=== PATIENT | female | born 1985 | race Caucasian/White ===

== ENCOUNTER 2016-04-22 15:16 | Outpatient (CLI) | payer MEDICAID | END 2016-04-22 15:17 | disposition home or self-care (01) | DX: M50.321 Other cervical disc degeneration at C4-C5 level (principal) ==

== ENCOUNTER 2017-08-11 08:00 | Outpatient (CLI) | payer MEDICAID | END 2017-08-11 08:01 | disposition home or self-care (01) | LOC: LAB.N 08:00 | PROVIDERS: ATTEND Nurse Practitioner | DX: Z33.3 Pregnant state, gestational carrier (principal) | CPT/HCPCS: 36415; 84702 ==

== ENCOUNTER 2017-08-13 08:00 | Outpatient (CLI) | payer MEDICAID | END 2017-08-13 08:01 | disposition home or self-care (01) | LOC: LAB.N 08:00 | PROVIDERS: ATTEND Nurse Practitioner | DX: Z33.3 Pregnant state, gestational carrier (principal) | CPT/HCPCS: 36415; 84702 ==

== ENCOUNTER 2018-03-18 12:06 | Emergency (ER) | payer MEDICAID ==
[2018-03-18 12:56] LABS: BILIRUBIN,URINE NEGATIVE (NEGATIVE); GLUCOSE, URINE (UA) NEGATIVE (NEGATIVE); KETONES,URINE (UA) TRACE mg/dL (NEGATIVE); LEUKOCYTE ESTERASE, URINE MODERATE (NEGATIVE); NITRITE,URINE POSITIVE (NEGATIVE); OCCULT BLOOD,URINE SMALL (NEGATIVE); PROTEIN,URINE 30 mg/dL (NEGATIVE); UROBILINOGEN,URINE 0.2 (NORMAL) E.U./dL (NORMAL)
[2018-03-18 12:59] LABS: CLARITY,URINE CLOUDY (CLEAR); HCG UR QUAL NEGATIVE
[2018-03-18 13:09] LABS: BASOPHILS # (AUTO) 0.1 10^3/uL (0.0-0.1); BASOPHILS % (AUTO) 0.5 %; HGB - HEMOGLOBIN 13.6 g/dL (12.0-16.0); LYMPHOCYTES # (AUTO) 0.7 10^3/uL (1.5-3.5); MEAN CORPUSCULAR HEMOGLOBIN 32.9 pg (27.0-31.0); MEAN CORPUSCULAR HGB CONC 35.5 g/dL (32.0-36.0); MEAN CORPUSCULAR VOLUME 92.9 fL (81.0-99.0); MEAN PLATELET VOLUME 8.2 fL (7.9-10.8); MONOCYTES # (AUTO) 1.3 10^3/uL (0.0-1.0); MONOCYTES % (AUTO) 13.1 %; NEUTROPHILS % (AUTO) 79.4 %; PLT - PLATELET COUNT 190 10^3/uL (130-450); RED BLOOD COUNT 4.13 10^6/uL (4.20-5.40); RED CELL DISTRIBUTION WIDTH 12.7 % (12.0-15.0); WHITE BLOOD COUNT 10.1 x10^3/uL (4.8-10.8)
[2018-03-18 13:13] LABS: BACTERIA,URINE Many /HPF (None Seen); RBC,URINE 0-5 /HPF (0-5); SQUAMOUS EPITHELIAL CELL,UR FEW Squamous (<= Few)
[2018-03-18 13:21] LABS: ALBUMIN 4.6 g/dL (3.2-5.5); ALBUMIN/GLOBULIN RATIO 1.3 (1.0-2.2); BILIRUBIN,TOTAL 0.8 mg/dL (0.2-1.0); CREATININE 0.6 mg/dL (0.4-1.0); TOTAL PROTEIN 8.1 g/dL (6.7-8.2)
--- NOTE | 2018-03-18 14:24 | ED Physician Documentation ---
PD HPI ABD PAIN - Stated complaint Stated Complaint: LOW RT SIDE ABD PX - Chief complaint Chief Complaint: Abd Pain - History obtained from History obtained from: Patient - History of Present Illness Timing - onset: Other (3 Days of increasing flank pain radiating to the lower quadrants similar to prior episodes of pyelonephritis which she has about once a year. No fevers but she has had chills and nausea but no vomiting yet.) Review of Systems Ten Systems: 10 systems reviewed and negative Constitutional: reports: Chills. denies: Fever GI: denies: Abdominal Pain, Nausea, Vomiting : denies: Dysuria, Frequency PD PAST MEDICAL HISTORY - Present Medications Home Medications: Ambulatory Orders Medication Instructions Recorded Confirmed Ciprofloxacin HCl [Cipro] 500 mg PO BID #14 tablet 03/18/18 Hydrocodone/Acetaminophen 1 - 2 each PO Q6H PRN #10 tablet 03/18/18 [Hydrocodon-Acetaminophen 5-325] Ondansetron Odt [Zofran] 4 mg TL Q6H PRN #10 tablet 03/18/18 RX: FLUoxetine [PROzac] 03/18/18 RX: hydrOXYzine HCl [Hydroxyzine 03/18/18 03/18/18 HCl] - Allergies Allergies/Adverse Reactions: Allergies Allergy/AdvReac Type Severity Reaction Status Date / Time doxycycline Allergy Rash Verified 03/18/18 12:37 PD ED PE NORMAL - Vitals Vital signs reviewed: Yes - General General: Alert and oriented X 3, No acute distress - Neck Neck: Supple, no meningeal sign, No bony TTP - Cardiac Cardiac: RRR, No murmur - Respiratory Respiratory: No respiratory distress, Clear bilaterally - Abdomen Abdomen: Non tender - Back Back: Other (Mod R CVAT) - Derm Derm: Normal color, Warm and dry - Extremities Extremities: No edema, No calf tenderness / cord - Neuro Neuro: Alert and oriented X 3, Normal speech Results - Vitals Vitals: Vital Signs - 24 hr 03/18/18 03/18/18 12:33 15:30 Temperature 37.4 C 37.2 C Heart Rate 97 94 Respiratory 18 16 Rate Blood Pressure 97/76 95/61 O2 Saturation 99 97 Oxygen O2 Source Room air - Labs Labs: Laboratory Tests 03/18/18 03/18/18 03/18/18 12:44 13:01 13:01 WBC 10.1 RBC 4.13 L Hgb 13.6 Hct 38.4 MCV 92.9 MCH 32.9 H MCHC 35.5 RDW 12.7 Plt Count 190 MPV 8.2 Neut # (Auto) 8.0 H Lymph # (Auto) 0.7 L [place] # (Auto) 1.3 H Eos # (Auto) 0.0 Baso # (Auto) 0.1 Absolute Nucleated RBC 0.01 Nucleated RBC % 0.1 Sodium 135 Potassium 3.5 Chloride 98 L Carbon Dioxide 27 Anion Gap 10.0 BUN 9 Creatinine 0.6 Estimated GFR (MDRD) 117 Glucose 105 H Calcium 9.0 Total Bilirubin 0.8 AST 18 ALT 14 Alkaline Phosphatase 50 Total Protein 8.1 Albumin 4.6 Globulin 3.5 Albumin/Globulin Ratio 1.3 Lipase 23 Urine Color YELLOW Urine Clarity CLOUDY Urine pH 6.0 Ur Specific [place] 1.020 Urine Protein 30 H Urine Glucose (UA) NEGATIVE Urine Ketones TRACE Urine Occult Blood SMALL H Urine Nitrite POSITIVE H Urine Bilirubin NEGATIVE Urine Urobilinogen 0.2 (NORMAL) Ur Leukocyte Esterase MODERATE H Urine RBC 0-5 Urine WBC >25 H Ur Squamous Epith Cells FEW Squamous Urine Bacteria Many H Ur Microscopic Review INDICATED Urine Culture Comments INDICATED Urine HCG, Qual NEGATIVE PD MEDICAL DECISION MAKING - ED course ED course: 32-year-old woman with signs and symptoms of pyelonephritis, Feeling better after the administration of IV fluids and antibiotics as well as pain and nausea medicine here. She was able to tolerate oral liquids. Departure - Departure Disposition: 01 Home, Self Care Clinical Impression: Pyelonephritis Condition: Good Record reviewed to determine appropriate education?: Yes Instructions: Pyelonephritis Dc Prescriptions: Ciprofloxacin HCl [Cipro] 500 mg PO BID #14 tablet Hydrocodone/Acetaminophen [Hydrocodon-Acetaminophen 5-325] 1 - 2 each PO Q6H PRN #10 tablet PRN Reason: pain Ondansetron Odt [Zofran] 4 mg TL Q6H PRN #10 tablet PRN Reason: Nausea / Vomiting Comments: We will culture your urine, the results should be done in 48-72 hours. If an antibiotic change is necessary we will call you. Return if worse in the meantime, especially if you develop increasing flank pain, fevers, or cannot keep down the medication. Call your doctor to arrange a follow-up appointment, make the next available appointment. In the interim, return anytime if worse or if new symptoms d evelop. Forms: Activity restrictions Discharge Date/Time: 03/18/18 15:31
[2018-03-18] MEDS: ONDANSETRON 4 MG/2 ML VIAL IVP STA (14:59)
[2018-03-18] MEDS: cefTRIAXone 1 GM in SODIUM CHLORIDE 0.9% MINIBAG 100 ML IV STA (14:59)
[2018-03-18] MEDS: KETOROLAC 30 MG/ML VIAL IVP STA (14:59)
[2018-03-18] MEDS: SODIUM CHLORIDE 0.9% 1,000 ML IV ONE (14:59)
[2018-03-18 15:31] VITALS: BP 95/61
== END 2018-03-18 15:31 | disposition home or self-care (01) ==
LOC: ED 12:06
DX: N12 Tubulo-interstitial nephritis, not specified as acute or chronic (principal)
CPT/HCPCS: 36415; 80053; 81001; 81003; 81025; 83690; 85025; 87077; 87086; 87181; 96365; 96375; 99283

== ENCOUNTER 2018-12-15 21:54 | Emergency (ER) | payer MEDICAID ==
--- NOTE | 2018-12-15 22:20 | ED Physician Documentation ---
PD HPI FEMALE - Stated complaint Stated Complaint: FEMALE - Chief complaint Chief Complaint: Abd Pain - History obtained from History obtained from: Patient - History of Present Illness Timing - onset: Enter time (19:00), Today Timing - duration: Hours Timing - details: Abrupt onset Pain level max: 7 Pain level max: 4 Associated symptoms: Pelvic pain (cramping), Vaginal bleeding. 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 Unsure if she is Review of Systems Constitutional: denies: Fever, Chills, Sweats Cardiac: reports: Reviewed and negative Respiratory: reports: Reviewed and negative GI: denies: Abdominal Pain (pelvic pain but no abdominal pain per se), Nausea, Vomiting : denies: Dysuria, Frequency Musculoskeletal: denies: Back pain PD PAST MEDICAL HISTORY - Past Medical History Past Medical History: Yes [employer]OR [employer]: Other : Chronic bladder infection - Past Surgical History /[employer]: Oophrectomy - Present Medications Home Medications: Ambulatory Orders Medication Instructions Recorded Confirmed Ciprofloxacin HCl [Cipro] 500 mg PO BID #14 tablet 03/18/18 FLUoxetine [PROzac] 03/18/18 Hydrocodone/Acetaminophen 1 - 2 each PO Q6H PRN #10 tablet 03/18/18 [Hydrocodon-Acetaminophen 5-325] Ondansetron Odt [Zofran] 4 mg TL Q6H PRN #10 tablet 03/18/18 hydrOXYzine HCl [Hydroxyzine HCl] 03/18/18 03/18/18 oxyCODONE [Roxicodone] 5 mg PO Q6H PRN #10 tablet 12/16/18 - Allergies Allergies/Adverse Reactions: Allergies Allergy/AdvReac Type Severity Reaction Status Date / Time doxycycline Allergy Rash Verified 12/15/18 22:00 - Social History Does the pt smoke?: Yes Smoking Status: Current every day smoker Does the pt drink ETOH?: Yes - Immunizations Immunizations are current?: Yes PD ED PE NORMAL - Vitals Vital signs reviewed: Yes - General General: Alert and oriented X 3, No acute distress, Well developed/nourished - Cardiac Cardiac: RRR, No murmur - Respiratory Respiratory: No respiratory distress, Clear bilaterally - Abdomen Abdomen: Soft, Non tender - Back Back: No CVA TTP - Derm Derm: Normal color, Warm and dry PD ED PE EXPANDED - Female Female : Vaginal Bleeding (scant blood in posterior vagina from closed os. no active bleeding, no clots, no tissue), Night Auditor present (KATHLEEN Hanson) Results - Vitals Vitals: Vital Signs - 24 hr 12/15/18 12/16/18 12/16/18 21:55 01:21 02:40 Temperature 36.1 C L Heart Rate 91 76 71 Respiratory 16 16 16 Rate Blood Pressure 138/99 H 120/77 140/84 H O2 Saturation 99 100 100 Oxygen O2 Source Nasal cannula - Labs Labs: Laboratory Tests 12/15/18 12/15/18 12/15/18 22:35 22:35 22:35 WBC 8.8 RBC 3.99 L Hgb 12.8 Hct 37.4 MCV 93.7 MCH 32.1 H MCHC 34.2 RDW 11.9 L Plt Count 199 MPV 10.5 Neut # (Auto) 5.9 Lymph # (Auto) 1.9 [place] # (Auto) 0.9 Eos # (Auto) 0.1 Baso # (Auto) 0.0 Absolute Nucleated RBC 0.00 Nucleated RBC % 0.0 Sodium 136 Potassium 3.4 L Chloride 102 Carbon Dioxide 26 Anion Gap 8.0 BUN 15 Creatinine 0.7 Estimated GFR (MDRD) 97 Glucose 120 H Calcium 9.2 HCG, Quant Urine Color Urine Clarity Urine pH Ur Specific [place] Urine Protein Urine Glucose (UA) Urine Ketones Urine Occult Blood Urine Nitrite Urine Bilirubin Urine Urobilinogen Ur Leukocyte Esterase Urine RBC Urine WBC Ur Squamous Epith Cells Urine Bacteria Ur Microscopic Review Urine Culture Comments Blood Type A POSITIVE Antibody Screen NEGATIVE 12/15/18 12/15/18 22:35 23:40 WBC RBC Hgb Hct MCV MCH MCHC RDW Plt Count MPV Neut # (Auto) Lymph # (Auto) [place] # (Auto) Eos # (Auto) Baso # (Auto) Absolute Nucleated RBC Nucleated RBC % Sodium Potassium Chloride Carbon Dioxide Anion Gap BUN Creatinine Estimated GFR (MDRD) Glucose Calcium HCG, Quant 54667.00 Urine Color YELLOW Urine Clarity BLOODY Urine pH 5.5 Ur Specific [place] 1.025 Urine Protein 30 H Urine Glucose (UA) NEGATIVE Urine Ketones NEGATIVE Urine Occult Blood LARGE H Urine Nitrite NEGATIVE Urine Bilirubin NEGATIVE Urine Urobilinogen 0.2 (NORMAL) Ur Leukocyte Esterase TRACE H Urine RBC TNTC H Urine WBC 0-3 Ur Squamous Epith Cells FEW Squamous Urine Bacteria Rare Ur Microscopic Review INDICATED Urine Culture Comments INDICATED Blood Type Antibody Screen - Rads (name of study) first trimester US Radiology: Prelim report reviewed, See rad report PD MEDICAL DECISION MAKING - ED course Complexity details: reviewed results, re-evaluated patient, considered differential, d/w patient ED course: Results reviewed with patient. At this point, the most likely explanation is completed spontaneous , but I emphasized the need for f/u to ensure she does not retain any products of conception as well as to repeat testing (such as quantitative HCG and US) to r/o ectopic . Case d/w Dr. Marvin, agrees with this plan (outpatient f/u, return if worse or new/concerning signs/symptoms such as fever, uncontrolled pain, or worsening vaginal bleeding). Departure - Departure Disposition: 01 Home, Self Care Clinical Impression: Spontaneous Condition: Good Instructions: ED Miscarriage Completed Follow-Up: Candido Marvin MD [Provider Admit Priv/Credential] - Within 3 Days Prescriptions: oxyCODONE [Roxicodone] 5 mg PO Q6H PRN #10 tablet PRN Reason: Pain Comments: You will need repeat testing within the next 2-3 days; follow up with public weigher. Discharge Date/Time: 12/16/18 02:52
[2018-12-15 22:44] LABS: BASOPHILS % (AUTO) 0.3 %; EOSINOPHILS # (AUTO) 0.1 10^3/uL (0.0-0.7); EOSINOPHILS % (AUTO) 0.8 %; HGB - HEMOGLOBIN 12.8 g/dL (12.0-16.0); LYMPHOCYTES # (AUTO) 1.9 10^3/uL (1.5-3.5); LYMPHOCYTES % (AUTO) 21.1 %; MEAN CORPUSCULAR HEMOGLOBIN 32.1 pg (27.0-31.0); MEAN CORPUSCULAR HGB CONC 34.2 g/dL (32.0-36.0); MEAN CORPUSCULAR VOLUME 93.7 fL (81.0-99.0); MEAN PLATELET VOLUME 10.5 fL (7.9-10.8); MONOCYTES # (AUTO) 0.9 10^3/uL (0.0-1.0); MONOCYTES % (AUTO) 10.6 %; NEUTROPHILS # (AUTO) 5.9 10^3/uL (1.5-6.6); NEUTROPHILS % (AUTO) 66.9 %; PLT - PLATELET COUNT 199 10^3/uL (130-450); RED BLOOD COUNT 3.99 10^6/uL (4.20-5.40); RED CELL DISTRIBUTION WIDTH 11.9 % (12.0-15.0); WHITE BLOOD COUNT 8.8 x10^3/uL (4.8-10.8)
[2018-12-15 22:53] LABS: CALCIUM 9.2 mg/dL (8.5-10.3); CREATININE 0.7 mg/dL (0.4-1.0)
[2018-12-16 00:03] LABS: GLUCOSE, URINE (UA) NEGATIVE (NEGATIVE); KETONES,URINE (UA) NEGATIVE (NEGATIVE); LEUKOCYTE ESTERASE, URINE TRACE (NEGATIVE); NITRITE,URINE NEGATIVE (NEGATIVE); OCCULT BLOOD,URINE LARGE (NEGATIVE); PH,URINE 5.5 PH (5.0-7.5); PROTEIN,URINE 30 mg/dL (NEGATIVE); UROBILINOGEN,URINE 0.2 (NORMAL) E.U./dL (NORMAL)
[2018-12-16 00:10] LABS: BILIRUBIN,URINE NEGATIVE (NEGATIVE); CLARITY,URINE BLOODY (CLEAR); ICTOTEST,URINE NEGATIVE
[2018-12-16 00:11] LABS: BACTERIA,URINE Rare /HPF (None Seen); RBC,URINE TNTC /HPF (0-5); SQUAMOUS EPITHELIAL CELL,UR FEW Squamous (<= Few)
[2018-12-16] MEDS ORDERED: oxyCODONE 5 MG TABLET PO STA (01:16)
--- NOTE | 2018-12-16 01:25 | Ultrasound Report ---
Reason: , vaginal bleeding and cramping Procedure Date: 12/16/2018 Accession Number: [id number] / [id number] Procedure: US - OB First Trimester CPT Code: FULL RESULT: EXAM: FIRST TRIMESTER OBSTETRIC ULTRASOUND (Less than 11 weeks) EXAM DATE: 12/15/2018 11:54 PM. CLINICAL HISTORY: , vaginal bleeding and cramping. LMP: Unknown. Quantitative serum beta-hCG level is 38,764. COMPARISONS: None. TECHNIQUE: Transabdominal and transvaginal ultrasound examination with static image documentation. ASSESSMENT: Gestational Sac: Not seen. Embryo: Not seen. Cardiac activity: Not seen. Yolk sac: Not seen. Amniotic fluid: Not seen. Early placenta: Not seen. Other: Thickened heterogeneous irregular endometrium measuring up to 1.2 cm in thickness. There is some vascularity which may indicate products of conception. MATERNAL STRUCTURES: Uterus: Anteverted. Unremarkable. Cervix: Closed. Right Ovary/Adnexa: The ovary is surgically absent. Left Ovary/Adnexa: The ovary measures 3.5 x 1.3 x 1.9 cm, volume 4.5 cc. Possible corpus luteum measuring 1.4 x 1.3 x 0.9 cm. Free Fluid: Small amount. Other: Large amount of bowel gas.. IMPRESSION: 1. No intrauterine or extrauterine gestation identified. 2. Mildly thickened heterogeneous irregular endometrium measuring up to 1.2 cm with some areas of vascularity possibly representing products of conception. Findings could represent incomplete . 3. Recommend correlation with serial quantitative serum beta-hCG levels and sonographic follow-up to exclude occult ectopic. RAD[facility]
[2018-12-16] MEDS ORDERED: ONDANSETRON 4 MG/2 ML VIAL IVP STA (01:28)
[2018-12-16 02:49] VITALS: BP 140/84
== END 2018-12-16 02:52 | disposition home or self-care (01) ==
LOC: ED 21:54
DX: O03.9 Complete or unspecified spontaneous abortion without complication (principal); F17.200 Nicotine dependence, unspecified, uncomplicated
CPT/HCPCS: 36415; 76801; 76817; 80048; 81001; 84702; 85025; 86850; 86900; 86901; 87086; 96374; 99283; 99284; A9270; 81003

== ENCOUNTER 2018-12-20 10:59 | Outpatient (CLI) | payer MEDICAID ==
[2018-12-20 11:28] LABS: HGB - HEMOGLOBIN 12.3 g/dL (12.0-16.0); MEAN CORPUSCULAR HEMOGLOBIN 32.7 pg (27.0-31.0); MEAN CORPUSCULAR HGB CONC 34.5 g/dL (32.0-36.0); MEAN CORPUSCULAR VOLUME 94.9 fL (81.0-99.0); MEAN PLATELET VOLUME 10.3 fL (7.9-10.8); RED BLOOD COUNT 3.76 10^6/uL (4.20-5.40); RED CELL DISTRIBUTION WIDTH 12.3 % (12.0-15.0); WHITE BLOOD COUNT 5.1 x10^3/uL (4.8-10.8)
== END 2018-12-20 11:00 | disposition home or self-care (01) ==
LOC: LAB 10:59
PROVIDERS: ATTEND Obstetrics & Gynecology
DX: O03.4 Incomplete spontaneous abortion without complication (principal)
CPT/HCPCS: 36415; 84702; 85027

== ENCOUNTER 2019-01-10 16:32 | Outpatient (CLI) | payer MEDICAID | END 2019-01-10 16:33 | disposition home or self-care (01) | LOC: LAB 16:32 | PROVIDERS: ATTEND Obstetrics & Gynecology | DX: O03.9 Complete or unspecified spontaneous abortion without complication (principal) | CPT/HCPCS: 36415; 84702 ==

== ENCOUNTER 2019-01-11 15:47 | Outpatient (CLI) | payer MEDICAID ==
--- NOTE | 2019-01-12 10:10 | XRAY Report ---
Reason: ELBOW PAIN Procedure Date: 01/11/2019 Accession Number: [id number] / [id number] Procedure: XRN - Elbow 3 View LT CPT Code: FULL RESULT: EXAM: LEFT ELBOW RADIOGRAPHY EXAM DATE: 01/11/2019 04:10 PM. CLINICAL HISTORY: Patient fell off deck 10 days ago. Left shoulder/arm pain. COMPARISON: None. TECHNIQUE: 3 views. FINDINGS: Bones: Normal. No fractures or bone lesions. Joints: Normal. No effusion. No subluxation. Soft Tissues: A 1 cm calcific density projecting anterior to the cortical metadiaphysis of the humerus is of uncertain significance. IMPRESSION: No acute fracture or dislocation. RADIA
--- NOTE | 2019-01-12 10:14 | XRAY Report ---
Reason: SHOULDER PAIN Procedure Date: 01/11/2019 Accession Number: [id number] / [id number] Procedure: XRN - Shoulder 3 View LT CPT Code: FULL RESULT: EXAM: LEFT SHOULDER RADIOGRAPHY EXAM DATE: 01/11/2019 04:08 PM. CLINICAL HISTORY: Shoulder pain. Fall off deck 10 days ago. Left shoulder and arm pain. COMPARISON: None. TECHNIQUE: 3 views. FINDINGS: Bones: Normal. No fracture or bone lesion. Joints: The glenohumeral and acromioclavicular joints are normal. Soft tissues: The visualized hemithorax is unremarkable. No soft tissue swelling. IMPRESSION: Normal shoulder radiography. RADIA
== END 2019-01-11 15:48 | disposition home or self-care (01) ==
LOC: DI.N 15:47
PROVIDERS: ATTEND Family Medicine
DX: M25.512 Pain in left shoulder (principal); M25.522 Pain in left elbow

== ENCOUNTER 2019-01-20 13:24 | Outpatient (CLI) | payer MEDICAID | END 2019-01-20 13:25 | disposition home or self-care (01) | LOC: LAB 13:24 | PROVIDERS: ATTEND Obstetrics & Gynecology | DX: O03.9 Complete or unspecified spontaneous abortion without complication (principal) | CPT/HCPCS: 36415; 84702 ==

== ENCOUNTER 2019-01-20 13:40 | Emergency (ER) | payer MEDICAID ==
[2019-01-20 14:01] VITALS: BP 128/78
--- NOTE | 2019-01-20 14:16 | ED Physician Documentation ---
History of Present Illness - Stated complaint Stated Complaint: LT SHOULDER PX - Chief complaint Chief Complaint: Ext Problem - History obtained from History obtained from: Patient - History of Present Illness Timing: How many weeks ago (3-4) Pain level max: 8 Pain level now: 6 - Additonal information Additional information: L shoulder pain s/p falling off a porch. negative xray a few days ago with her doctor. Worse with movement and better with rest. 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: Oophrectomy - Present Medications Home Medications: Ambulatory Orders Medication Instructions Recorded Confirmed Ciprofloxacin HCl [Cipro] 500 mg PO BID #14 tablet 03/18/18 FLUoxetine [PROzac] 03/18/18 Hydrocodone/Acetaminophen 1 - 2 each PO Q6H PRN #10 tablet 03/18/18 [Hydrocodon-Acetaminophen 5-325] Ondansetron Odt [Zofran] 4 mg TL Q6H PRN #10 tablet 03/18/18 hydrOXYzine HCl [Hydroxyzine HCl] 03/18/18 03/18/18 oxyCODONE [Roxicodone] 5 mg PO Q6H PRN #10 tablet 12/16/18 Cyclobenzaprine [Flexeril] 10 mg PO TID PRN #20 tablet 01/20/19 - Allergies Allergies/Adverse Reactions: Allergies Allergy/AdvReac Type Severity Reaction Status Date / Time doxycycline Allergy Rash Verified 12/15/18 22:00 - Social History Does the pt smoke?: Yes Smoking Status: Current every day smoker Does the pt drink ETOH?: Yes - Immunizations Immunizations are current?: Yes PD ED PE NORMAL - Vitals Vital signs reviewed: Yes - General General: Alert and oriented X 3, No acute distress - HEENT HEENT: Moist mucous membranes - Neck Neck: Supple, no meningeal sign, No bony TTP - Cardiac Cardiac: RRR - Respiratory Respiratory: No respiratory distress, Clear bilaterally - Back Back: No spinal TTP - Derm Derm: Warm and dry - Extremities Extremities: Other (Left shoulder mild diffuse tenderness to palpation about the rotator cuff. Pain with internal and external rotation. Neurovascular intact. Limited abduction) - Neuro Neuro: Alert and oriented X 3 Results - Vitals Vitals: Vital Signs - 24 hr 01/20/19 13:59 Temperature 36.8 C Heart Rate 78 Respiratory 16 Rate Blood Pressure 128/78 O2 Saturation 99 Oxygen O2 Source Room air PD MEDICAL DECISION MAKING - ED course Complexity details: reviewed old records, considered differential, d/w patient ED course: Negative x-rays approximately a week ago. Appears to have a rotator cuff strain. Will continue to gently range the shoulder. We will have her follow-up with her doctor for further care. Will trial on muscle relaxants for home. Patient counseled regarding signs and symptoms for which I believe and urgent re-evaluation would be necessary. Patient with good understanding of and agreement to plan and is comfortable going home at this time This document was made in part using voice recognition software. While efforts are made to proofread this document, sound alike and grammatical errors may occur. Departure - Departure Disposition: Home, Self Care Clinical Impression: Rotator cuff sprain Qualifiers: Encounter type: initial encounter Laterality: left Qualified Code(s): S43.422A - Sprain of left rotator cuff capsule, initial encounter Condition: Good Instructions: ED Tendinitis Rotator Cuff Follow-Up: Tyra Steel ARNP [Primary Care Provider] - Within 1 week Prescriptions: Cyclobenzaprine [Flexeril] 10 mg PO TID PRN #20 tablet PRN Reason: Spasms Comments: You need to continue to gently stretch your rotator cuff on that side. Return if you worsen. You can try a shoulder brace from [employer] as well as we discussed today. Do not drive or operate heavy machinery while taking the Flexeril.
== END 2019-01-20 14:47 | disposition home or self-care (01) ==
LOC: ED 13:40
DX: S43.422A Sprain of left rotator cuff capsule, initial encounter (principal); W17.89XA Other fall from one level to another, initial encounter; F17.200 Nicotine dependence, unspecified, uncomplicated; O03.9 Complete or unspecified spontaneous abortion without complication
CPT/HCPCS: 36415; 84702; 99282; 99284

== ENCOUNTER 2019-07-08 07:21 | Emergency (ER) | payer MEDICAID ==
--- NOTE | 2019-07-08 07:26 | ED Physician Documentation ---
PD HPI OPHTHO - Stated complaint Stated Complaint: R EYE PX - History obtained from History obtained from: Patient - History of Present Illness Timing - onset: Today Timing - duration: Hours Timing - details: Abrupt onset (The patient awoke with feeling of discomfort and some light sensitivity and also matting of the right eye this morning. She is not aware of any injury to it. She was wearing mask for her breathing yesterday and was wondering if there would been some irritation from that. She is only having discomfort in the right eye and not the left. She denies any runny nose or scratchy throat. She does not wear contacts. She had not been doing any activities to get apparent foreign bodies.) Location: Right. No: Both Quality / character: Aching, Sharp Associated symptoms: Redness (mild hyperemia), Matting, FB sensation, Photophobia. No: Swelling, Discharge, Decreased vision Contributing factors: No: Exposed to conjunctivitis, Recent URI, FB, Wears contacts Similar symptoms before: Has not had sx before Review of Systems Constitutional: denies: Fever, Chills Eyes: reports: Photophobia, Discharge (some matting closed today), Irritation. 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.g. 07/08/19 Ophthalmic Ointment] - Allergies Allergies/Adverse Reactions: Allergies Allergy/AdvReac Type Severity Reaction Status Date / Time doxycycline Allergy Rash Verified 07/08/19 07:31 - Social History Does the pt smoke?: Yes Smoking Status: Current every day smoker Does the pt drink ETOH?: Yes - Immunizations Immunizations are current?: Yes - POLST Patient has POLST: No PD ED PE NORMAL - Vitals Vital signs reviewed: Yes - General General: Alert and oriented X 3, Well developed/nourished, Other (Seems uncomfortable from the eye pain. Obvious strabismus noted which she states is congenital.) - HEENT HEENT: PERRL, EOMI, Moist mucous membranes, Pharynx benign PD ED PE EXPANDED - Eyes Eyes: Right eye, No eyelid FB (everted), Injected conj/sclera (mild lower eye), Corneal abrasion, Fluorescein uptake (at 11 o'clock position to the iris, small 2 mm rounded superficial uptake c/w abrasion. No dendritic pattern. ), Anterior chambers clear. No: Eyelid swelling, Exudate, Corneal FB Results - Vitals Vitals: Vital Signs - 24 hr 07/08/19 07:29 Temperature 36.6 C Heart Rate 84 Respiratory 16 Rate Blood Pressure 125/83 H O2 Saturation 99 Oxygen O2 Source Room air PD MEDICAL DECISION MAKING - ED course Complexity details: considered differential (Has corneal abrasion superficial. But also matting this morning and some redness, so consider early infection vs allergic/irritative reaction. Will Rx antibiotic ointment for coating effect (to reduce pain) and as abx in case. ), d/w patient Departure - Departure Disposition: 01 Home, Self Care Clinical Impression: Corneal abrasion Qualifiers: Encounter type: initial encounter Laterality: right Qualified Code(s): S05.01XA - Injury of conjunctiva and corneal abrasion without foreign body, right eye, initial encounter Conjunctivitis, acute Qualifiers: Acute conjunctivitis type: unspecified Laterality: right Qualified Code(s): H10.31 - Unspecified acute conjunctivitis, right eye Condition: Stable Record reviewed to determine appropriate education?: Yes Instructions: ED Eye Injury Corneal Abrasion Prescriptions: Erythromycin Base [Erythromycin Ophthalmic Ointment] 1 applic OP QID #3.5 oint...g. Comments: Use the antibiotic ointment every 2-3 hours for the next day or 2 to provide soothing coating of the eye and to reduce potential infection. Ibuprofen 600 mg 3 times a day for the next couple of days as well. Add Tylenol if needed for pain 2. The small abrasion should heal up within a day and be feeling better. If there is some early infection to it the antibiotic should help as well. Discharge Date/Time: 07/08/19 07:56
[2019-07-08 07:37] VITALS: BP 125/83
[2019-07-08] MEDS: PROPARACAINE 0.5% OPHTH DROPS 15 ML RIGHTEYE STA (07:38)
[2019-07-08] MEDS: ERYTHROMYCIN OPHTH OINT 1 GM TUBE RIGHTEYE STA (07:56)
== END 2019-07-08 07:56 | disposition home or self-care (01) ==
LOC: ED 07:21
DX: S05.01XA Injury of conjunctiva and corneal abrasion without foreign body, right eye, initial encounter (principal); X58.XXXA Exposure to other specified factors, initial encounter; H10.31 Unspecified acute conjunctivitis, right eye; F17.200 Nicotine dependence, unspecified, uncomplicated
CPT/HCPCS: 99282; 99283; J3490

== ENCOUNTER 2019-09-06 16:59 | Emergency (ER) | payer MEDICAID ==
--- NOTE | 2019-09-06 18:38 | ED Physician Documentation ---
PD HPI UPPER EXT INJURY - Stated complaint Stated Complaint: R ARM PAIN - Chief complaint Chief Complaint: Trauma Ext - History obtained from History obtained from: Patient, Family - History of Present Illness Location: Right, Wrist Type of injury: Fall Where injury occurred: Home Timing - onset: Last night Timing - duration: Days (1) Timing - details: Abrupt onset, Still present Improved by: Rest, Immobilization Worsened by: Moving, Palpating Associated symptoms: Swelling. No: Weakness, Numbness Contributing factors: No: Anticoagulated Similar symptoms before: Has not had sx before Recently seen: Not recently seen - Additonal information Additional information: 34-year-old female tripped over her dog last night and landed on her outstretched right hand. She has pain in the right wrist and right forearm and this is not improving. She is not able to hold up a coffee cup and she is not able to open the door with the hand. Review of Systems Constitutional: denies: Fever Ears: denies: Ear pain Nose: denies: Congestion Throat: denies: Sore throat Respiratory: denies: Cough GI: denies: Nausea, Vomiting : denies: Dysuria Skin: denies: Rash Musculoskeletal: reports: Extremity pain, Joint pain, Extremity swelling, Joint swelling. 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 : Chronic bladder infection HEENT: Other - Past Surgical History Past Surgical History: Yes /CRANKSHAFT BALANCER: Oophrectomy - Present Medications Home Medications: Ambulatory Orders Medication Instructions Recorded Confirmed Ciprofloxacin HCl [Cipro] 500 mg PO BID #14 tablet 03/18/18 FLUoxetine [PROzac] 03/18/18 Hydrocodone/Acetaminophen 1 - 2 each PO Q6H PRN #10 tablet 03/18/18 [Hydrocodon-Acetaminophen 5-325] Ondansetron Odt [Zofran] 4 mg TL Q6H PRN #10 tablet 03/18/18 hydrOXYzine HCL [Hydroxyzine HCl] 03/18/18 03/18/18 oxyCODONE [Roxicodone] 5 mg PO Q6H PRN #10 tablet 12/16/18 Cyclobenzaprine [Flexeril] 10 mg PO TID PRN #20 tablet 10/25/19 Erythromycin Base [Erythromycin 1 applic OP QID #3.5 oint...g. 07/08/19 Ophthalmic Ointment] - Allergies Allergies/Adverse Reactions: Allergies Allergy/AdvReac Type Severity Reaction Status Date / Time doxycycline Allergy Rash Verified 09/06/19 17:31 - Social History Does the pt smoke?: Yes Smoking Status: Current every day smoker Does the pt drink ETOH?: Yes Does the pt have substance abuse?: No Substance Use and Type: Marijuana - Immunizations Immunizations are current?: Yes - POLST Patient has POLST: No PD ED PE NORMAL - Vitals Vital signs reviewed: Yes (Normal) - General General: Alert and oriented X 3, No acute distress, Well developed/nourished - HEENT HEENT: Atraumatic, PERRL, EOMI - Respiratory Respiratory: No respiratory distress - Derm Derm: Normal color, Warm and dry, No rash - Extremities Extremities: No deformity, No edema, Other (There is mild swelling to the distal right radius over the shaft at the distal one quarter of the radius. There is no crepitance to the area no step-off there is pain in the anatomic snuffbox there is restriction of range of motion to the wrist. Distal neurovascular components are intact.) - Neuro Neuro: Alert and oriented X 3, certified medicine aide 2-12 intact, No motor deficit, No sensory deficit, Normal speech Eye Opening: Spontaneous Motor: Obeys Commands Verbal: Oriented GCS Score: 15 - Psych Psych: Normal mood, Normal affect Results - Vitals Vitals: Vital Signs - 24 hr 09/06/19 17:32 Temperature 36.8 C Heart Rate 70 Respiratory 17 Rate Blood Pressure 126/71 O2 Saturation 99 Oxygen O2 Source Room air - Rads (name of study) wrist Radiology: Prelim report reviewed (Impression: No trauma found.), EMP read indepedently, See rad report Procedures - Splint (location) Right wrist Splint applied by: Tech Type of splint: Fiberglass, Volar cock up Other: Patient tolerated well, No complications, Neurovascular intact, Good alignment PD MEDICAL DECISION MAKING - ED course Complexity details: reviewed results, re-evaluated patient, considered differential, d/w patient ED course: 34-year-old female with a right wrist sprain is placed into a volar wrist splint. We will have her follow-up with orthopedics as needed. Departure - Departure Disposition: Home, Self Care Clinical Impression: Right wrist sprain Qualifiers: Encounter type: initial encounter Qualified Code(s): S63.501A - Unspecified sprain of right wrist, initial encounter Condition: Stable Instructions: ED Sprain Wrist Follow-Up: [facility] [Provider Group]
--- NOTE | 2019-09-06 18:39 | XRAY Report ---
Reason: FOOSH distal radius pain Procedure Date: 09/06/2019 Accession Number: [id number] / [id number] Procedure: XR - Wrist 4 View RT CPT Code: Final Report FULL RESULT: PROCEDURE: Wrist 4 View RT INDICATIONS: FOOSH distal radius pain TECHNIQUE: 4 views of the wrist were acquired. COMPARISON: None FINDINGS: Bones: No fractures or dislocations. No suspicious bony lesions. Scaphoid view: No trauma. Soft tissues: No suspicious soft tissue calcifications. IMPRESSION: No trauma found. Reviewed by: Bernardino Anthony MD on 09/06/2019 6:37 PM PDT Approved by: Bernardino Anthony MD on 09/06/2019 6:37 PM PDT Station ID: [id number]
[2019-09-06 18:49] VITALS: BP 132/65
== END 2019-09-06 18:50 | disposition home or self-care (01) ==
LOC: ED 16:59
DX: S63.501A Unspecified sprain of right wrist, initial encounter (principal); W01.0XXA Fall on same level from slipping, tripping and stumbling without subsequent striking against object, initial encounter; Y92.009 Unspecified place in unspecified non-institutional (private) residence as the place of occurrence of the external cause; F17.200 Nicotine dependence, unspecified, uncomplicated
CPT/HCPCS: 29125; 99283; 99284

== ENCOUNTER 2019-10-13 13:56 | Emergency (ER) | payer MEDICAID ==
--- NOTE | 2019-10-13 15:39 | ED Physician Documentation ---
PD HPI NECK PAIN - Stated complaint Stated Complaint: NECK PX - Chief complaint Chief Complaint: General - History obtained from History obtained from: Patient - History of Present Illness Timing - onset: Today Timing - duration: Hours (8) Timing - details: Abrupt onset (awoke this morning with pain right side back of neck with feeling of muscle tightness. No noted injury. No recent URI. Denies radiation to arm. No weakness nor numbness in arms.) Location: Lower, Right Quality: Pain, Spasm. No: Tearing, Aching Associated symptoms: No: Fever, Weakness, Numbness Improves with: Rest Worsened by: Movement, Twisting, Palpation Contributing factors: No: Twisting, Trauma Similar symptoms before: No diagnosis (episodic neck pain.) Review of Systems Constitutional: denies: Fever, Chills Nose: denies: Rhinorrhea / runny nose, Congestion Throat: denies: Sore throat Respiratory: denies: Cough GI: denies: Nausea, Vomiting, Diarrhea Musculoskeletal: reports: Neck pain. denies: Back pain Neurologic: reports: Headache (back of neck/head on right). 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.g. 07/08/19 Ophthalmic Ointment] Hydrocodone/Acetaminophen [[place] 1 each PO Q6H PRN #15 tablet 10/13/19 5-325 Tablet] Naproxen 500 mg PO BID #20 tablet 10/13/19 methocarbamoL [Robaxin] 500 mg PO Q6H PRN #20 tablet 10/13/19 - Allergies Allergies/Adverse Reactions: Allergies Allergy/AdvReac Type Severity Reaction Status Date / Time doxycycline Allergy Rash Verified 10/13/19 14:00 - Social History Does the pt smoke?: Yes Smoking Status: Current every day smoker Does the pt drink ETOH?: Yes Does the pt have substance abuse?: No - Immunizations Immunizations are current?: Yes - POLST Patient has POLST: No PD ED PE NORMAL - Vitals Vital signs reviewed: Yes - General General: Alert and oriented X 3, Well developed/nourished, Other (appears uncomfortable with guarding ROM of the neck. Slightly tilted to the right. Tender right neck muscle posteriorly. No redness, rash nor sores. ) - HEENT HEENT: Atraumatic, Ears normal, Moist mucous membranes - Neck Neck: No bony TTP - Cardiac Cardiac: RRR, No murmur - Respiratory Respiratory: Clear bilaterally - Derm Derm: Normal color, Warm and dry, No rash - Neuro Neuro: Alert and oriented X 3, No motor deficit, No sensory deficit, Normal speech Results - Vitals Vitals: Vital Signs - 24 hr 10/13/19 10/13/19 10/13/19 14:00 16:34 16:58 Temperature 36.8 C 97.5 C H 36.6 C Heart Rate 80 83 75 Respiratory 16 18 18 Rate Blood Pressure 123/70 113/60 110/65 O2 Saturation 98 99 98 Oxygen O2 Source Room air PD MEDICAL DECISION MAKING - ED course Complexity details: considered differential (no red flags noted; tender in right muscles, and has torticolllis type symptoms. Offered trigger point injection, but patient deferred for now. ), d/w patient Departure - Departure Disposition: 01 Home, Self Care Clinical Impression: Neck muscle spasm Condition: Stable Record reviewed to determine appropriate education?: Yes Instructions: ED Spasm Neck No Injury Prescriptions: Naproxen 500 mg PO BID #20 tablet Hydrocodone/Acetaminophen [[place] 5-325 Tablet] 1 each PO Q6H PRN #15 tablet PRN Reason: Pain methocarbamoL [Robaxin] 500 mg PO Q6H PRN #20 tablet PRN Reason: Spasms Comments: Heat or ice or cold to the neck whichever feels better and that will depend on whether it is more spasm or inflammation. Use anti-inflammatories of naproxen 2-3 times a day. Add methocarbamol muscle relaxant as needed for stiffness and spasm. To that add Tylenol or hydrocodone if needed for pain. At this point I do not see any indication to suggest need for imaging or lab tests. Recheck if other symptoms develop such as rash fever numbness weakness or other concerns. Follow-up if not improved over the next several days and resolved within a week. Discharge Date/Time: 10/13/19 17:02
[2019-10-13] MEDS ORDERED: KETOROLAC 30 MG/ML VIAL IM STA (16:14)
[2019-10-13] MEDS ORDERED: HYDROcod/ACETAM 5/325 MG TABLET PO STA (16:14)
[2019-10-13] MEDS ORDERED: methocarbamoL 500 MG TABLET PO STA (16:14)
[2019-10-13 16:58] VITALS: BP 110/65
== END 2019-10-13 17:02 | disposition home or self-care (01) ==
LOC: ED 13:56
DX: M62.838 Other muscle spasm (principal); F17.200 Nicotine dependence, unspecified, uncomplicated
CPT/HCPCS: 99283; 99284; A9270

== ENCOUNTER 2019-10-16 18:11 | Emergency (ER) | payer MEDICAID ==
[2019-10-16] MEDS ORDERED: ONDANSETRON 4 MG/2 ML VIAL IVP STA (18:36)
[2019-10-16] MEDS ORDERED: MORPHINE 2 MG/ML CARPUJECT IVP STA ×2 (18:36→19:21)
[2019-10-16] MEDS ORDERED: SODIUM CHLORIDE 0.9% 1,000 ML IV STA (18:36)
--- NOTE | 2019-10-16 18:37 | ED Physician Documentation ---
PD HPI ABD PAIN - Stated complaint Stated Complaint: BACK AND ABD PAIN - Chief complaint Chief Complaint: Abd Pain - History obtained from History obtained from: Patient - Additional information Additional information: 34-year-old woman with occasional recurrent pyelonephritis presents with vomiting flank and abdominal pain since yesterday similar to prior episodes of same. She has had sweats and chills. No measured fevers. Cloudy urine as well. No possibility of per her. Review of Systems Constitutional: reports: Chills, Sweats Cardiac: denies: Chest pain / pressure, Palpitations Respiratory: denies: Dyspnea, Cough GI: reports: Abdominal Pain, Nausea, Vomiting. 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.g. 07/08/19 Ophthalmic Ointment] Hydrocodone/Acetaminophen [[place] 1 each PO Q6H PRN #15 tablet 10/13/19 5-325 Tablet] Naproxen 500 mg PO BID #20 tablet 10/13/19 methocarbamoL [Robaxin] 500 mg PO Q6H PRN #20 tablet 10/13/19 Ciprofloxacin HCl [Cipro] 500 mg PO BID #20 tablet 10/16/19 Ondansetron Odt [Zofran] 4 mg TL Q6H PRN #10 tablet 10/16/19 Oxycodone HCl/Acetaminophen 1 - 2 each PO Q6H PRN #14 tablet 10/16/19 [Percocet 5-325 mg Tablet] - Allergies Allergies/Adverse Reactions: Allergies Allergy/AdvReac Type Severity Reaction Status Date / Time doxycycline Allergy Rash Verified 10/16/19 18:14 - Social History Does the pt smoke?: Yes Smoking Status: Current every day smoker Does the pt drink ETOH?: Yes Does the pt have substance abuse?: No - Immunizations Immunizations are current?: Yes - POLST Patient has POLST: No PD ED PE NORMAL - Vitals Vital signs reviewed: Yes - General General: Alert and oriented X 3, No acute distress - Cardiac Cardiac: Other (Tachycardic but regular without murmur) - Respiratory Respiratory: No respiratory distress, Clear bilaterally - Abdomen Abdomen: Non tender - Back Back: Other (Tender to the right flank) - Derm Derm: Normal color, Warm and dry - Extremities Extremities: No edema, No calf tenderness / cord - Neuro Neuro: Alert and oriented X 3, Normal speech Results - Vitals Vitals: Vital Signs - 24 hr 10/16/19 10/16/19 10/16/19 18:14 19:01 20:01 Temperature 37.0 C 39.3 C H 38.3 C H Heart Rate 116 H 103 H 98 Respiratory 18 19 18 Rate Blood Pressure 127/60 120/77 O2 Saturation 97 100 99 Oxygen O2 Source Room air - Labs Labs: Laboratory Tests 10/16/19 10/16/19 10/16/19 18:28 18:50 18:52 WBC 10.4 RBC 3.95 L Hgb 12.7 Hct 37.4 MCV 94.7 MCH 32.2 H MCHC 34.0 RDW 12.7 Plt Count 144 MPV 10.5 Neut # (Auto) 8.2 H Lymph # (Auto) 0.8 L Floyd # (Auto) 1.4 H Eos # (Auto) 0.0 Baso # (Auto) 0.0 Absolute Nucleated RBC 0.00 Nucleated RBC % 0.0 Sodium Potassium Chloride Carbon Dioxide Anion Gap BUN Creatinine Estimated GFR (MDRD) Glucose Calcium Total Bilirubin AST ALT Alkaline Phosphatase Total Protein Albumin Globulin Albumin/Globulin Ratio Lipase Urine Color YELLOW Urine Clarity HAZY Urine pH 5.5 Ur Specific Armstrong 1.010 1.010 Urine Protein 30 H Urine Glucose (UA) NEGATIVE Urine Ketones 40 H Urine Occult Blood SMALL H Urine Nitrite POSITIVE H Urine Bilirubin NEGATIVE Urine Urobilinogen 0.2 (NORMAL) Ur Leukocyte Esterase TRACE H Urine RBC 6-10 H Urine WBC >25 H Urine WBC Clumps PRESENT Ur Squamous Epith Cells FEW Squamous Urine Bacteria Many H Ur Microscopic Review INDICATED Urine Culture Comments INDICATED Urine HCG, Qual NEGATIVE 10/16/19 18:52 WBC RBC Hgb Hct MCV MCH MCHC RDW Plt Count MPV Neut # (Auto) Lymph # (Auto) Floyd # (Auto) Eos # (Auto) Baso # (Auto) Absolute Nucleated RBC Nucleated RBC % Sodium 134 L Potassium 3.2 L Chloride 96 L Carbon Dioxide 27 Anion Gap 11.0 BUN 9 Creatinine 0.8 Estimated GFR (MDRD) 83 L Glucose 96 Calcium 8.8 Total Bilirubin 0.8 AST 17 ALT 15 Alkaline Phosphatase 43 Total Protein 7.1 Albumin 3.9 Globulin 3.2 Albumin/Globulin Ratio 1.2 Lipase 34 Urine Color Urine Clarity Urine pH Ur Specific Armstrong Urine Protein Urine Glucose (UA) Urine Ketones Urine Occult Blood Urine Nitrite Urine Bilirubin Urine Urobilinogen Ur Leukocyte Esterase Urine RBC Urine WBC Urine WBC Clumps Ur Squamous Epith Cells Urine Bacteria Ur Microscopic Review Urine Culture Comments Urine HCG, Qual PD MEDICAL DECISION MAKING - ED course ED course: 34-year-old woman presents with recurrent pyelonephritis confirmed on urinalysis. White count not too bad but she was febrile here. Pain was controlled stepwise with medications and also received some IV fluids and Rocephin here. Feeling much better after these interventions. Departure - Departure Disposition: 01 Home, Self Care Clinical Impression: Pyelonephritis Condition: Good Record reviewed to determine appropriate education?: Yes Instructions: Pyelonephritis Dc Prescriptions: Ciprofloxacin HCl [Cipro] 500 mg PO BID #20 tablet Oxycodone HCl/Acetaminophen [Percocet 5-325 mg Tablet] 1 - 2 each PO Q6H PRN #14 tablet PRN Reason: pain Ondansetron Odt [Zofran] 4 mg TL Q6H PRN #10 tablet PRN Reason: Nausea / Vomiting Comments: Drink plenty of fluids, return for new or worsening symptoms. Follow-up with your doctor in a few days for recheck. I expect the next couple of days to still be pretty rough, but then you should turn the corner. As such I have written a note for 2 days off of work. We will culture your urine, the results should be done in 48-72 hours. If an antibiotic change is necessary we will call you. Return if worse in the meantime. Do not drink or drive while taking narcotic pain medication. Note that many narcotic pain relievers also contain Tylenol/acetaminophen. Please ensure that your total dose of acetaminophen from all sources does not exceed 3 g (3000 mg) per day. You may get constipated while on this medication. Take a stool softener such as Colace twice a day while you are on it. Also add an [id number] laxative such as senna or MiraLAX on any day that you do not have a bowel movement. If you received a narcotic pain medication or sedative while in the emergency department, do not drive for the next 24 hours.
[2019-10-16 18:55] LABS: BILIRUBIN,URINE NEGATIVE (NEGATIVE); GLUCOSE, URINE (UA) NEGATIVE (NEGATIVE); KETONES,URINE (UA) 40 mg/dL (NEGATIVE); LEUKOCYTE ESTERASE, URINE TRACE (NEGATIVE); NITRITE,URINE POSITIVE (NEGATIVE); OCCULT BLOOD,URINE SMALL (NEGATIVE); PH,URINE 5.5 PH (5.0-7.5); PROTEIN,URINE 30 mg/dL (NEGATIVE); UROBILINOGEN,URINE 0.2 (NORMAL) E.U./dL (NORMAL)
[2019-10-16 18:58] LABS: CLARITY,URINE HAZY (CLEAR)
[2019-10-16 19:02] VITALS: BP 120/77
[2019-10-16 19:04] LABS: BASOPHILS % (AUTO) 0.3 %; HGB - HEMOGLOBIN 12.7 g/dL (12.0-16.0); LYMPHOCYTES # (AUTO) 0.8 10^3/uL (1.5-3.5); LYMPHOCYTES % (AUTO) 7.2 %; MEAN CORPUSCULAR HEMOGLOBIN 32.2 pg (27.0-31.0); MEAN CORPUSCULAR VOLUME 94.7 fL (81.0-99.0); MEAN PLATELET VOLUME 10.5 fL (7.9-10.8); MONOCYTES # (AUTO) 1.4 10^3/uL (0.0-1.0); MONOCYTES % (AUTO) 13.3 %; NEUTROPHILS # (AUTO) 8.2 10^3/uL (1.5-6.6); NEUTROPHILS % (AUTO) 78.9 %; PLT - PLATELET COUNT 144 10^3/uL (130-450); RED BLOOD COUNT 3.95 10^6/uL (4.20-5.40); RED CELL DISTRIBUTION WIDTH 12.7 % (12.0-15.0); WHITE BLOOD COUNT 10.4 x10^3/uL (4.8-10.8)
[2019-10-16] MEDS ORDERED: ACETAMINOPHEN 325 MG TABLET PO STA (19:04)
[2019-10-16 19:06] LABS: HCG UR QUAL NEGATIVE
[2019-10-16 19:06] LABS: BACTERIA,URINE Many /HPF (None Seen); SQUAMOUS EPITHELIAL CELL,UR FEW Squamous (<= Few); WBC CLUMPS,URINE PRESENT
[2019-10-16 19:16] LABS: ALBUMIN 3.9 g/dL (3.2-5.5); ALBUMIN/GLOBULIN RATIO 1.2 (1.0-2.2); BILIRUBIN,TOTAL 0.8 mg/dL (0.2-1.0); CALCIUM 8.8 mg/dL (8.5-10.3); CREATININE 0.8 mg/dL (0.4-1.0); TOTAL PROTEIN 7.1 g/dL (6.7-8.2)
[2019-10-16] MEDS ORDERED: cefTRIAXone 1 GM in SODIUM CHLORIDE 0.9% MINIBAG 100 ML IV STA (19:19)
[2019-10-16] MEDS ORDERED: POTASSIUM CHLORIDE 20 MEQ TABLET PO STA (19:21)
[2019-10-16] MEDS ORDERED: oxyCODONE/ACET 5/325 Prepack 4 PO STA (20:08)
[2019-10-16] MEDS ORDERED: ONDANSETRON ODT 4 MG Prepack 2 TL STA (20:08)
== END 2019-10-16 20:25 | disposition home or self-care (01) ==
LOC: ED 18:11
DX: N12 Tubulo-interstitial nephritis, not specified as acute or chronic (principal); F17.200 Nicotine dependence, unspecified, uncomplicated
CPT/HCPCS: 36415; 80053; 81001; 81025; 83690; 85025; 87086; 96361; 96365; 96375; 96376; 99283; 99284; A9270; 81003

== ENCOUNTER 2021-07-10 13:22 | Emergency (ER) | payer MEDICAID, OTHER ==
[2021-07-10 13:39] VITALS: BP 125/77
--- OUTSIDE RECORDS SUMMARY | 2021-07-10 13:52 | EXTERNAL MEDICAL SUMMARY RPT | Continuity of Care Document ---
:1985 Author Organization [facility] Address [address] [place] [address] Phone Care Team Providers Name Role Phone Junior Pratt Unavailable Unavailable Sylvain Hamilton Unavailable Unavailable Miscellaneous, Doctor Unavailable Unavailable Allergies No information. Encounters No information. Medications date description facility 20210509 Ondansetron 4 MG Disintegrating Tablet [facility] 20210509 Ondansetron 4 MG Disintegrating Tablet [facility] Problems date description facility [id number] Unspecified abdominal pain [facility] 20210516 Polycystic ovarian syndrome [facility] pital 20210516 Left lower quadrant pain [facility] [id number] Follicular cyst of ovary, unspecified s robyn [facility] [id number] Diarrhea, unspecified [facility] 20210509 Lower abdominal pain, unspecified [facility] Procedures date description facility [id number] [facility] 20210509 [facility] 20210509 [facility] Results No information. Vital Signs date measurement value source 20210509 temperature_standard 97.8 F 20210509 temperature_metric 36.56 C 20210509 respiration_rate 17 /min 20210509 heart_rate 78 /min 20210509 weight_standard 93.98 lb 20210509 weight_metric 42.63 kg 20210509 temperature_standard 97.8 F 20210509 temperature_metric 36.56 C 20210509 respiration_rate 17 /min 20210509 height_standard 61 in 20210509 height_metric 154.94 cm 20210509 heart_rate 78 /min 20210509 BP_systolic 118 mm[Hg] 20210509 BP_diastolic 69 mm[Hg] 20210509 BMI 17.7 kg/m2 20210516 weight_standard 43.09 lb 20210516 weight_metric 19.55 kg 20210516 height_standard 61 in 20210516 height_metric 154.94 cm 20210516 BP_systolic 116 mm[Hg] 20210516 BP_diastolic 72 mm[Hg] 20210516 BMI 17.9 kg/m2
[2021-07-10] MEDS ORDERED: predniSONE 20 MG TABLET PO STA (14:53)
[2021-07-10] MEDS ORDERED: oxyCODONE 5 MG TABLET PO STA (14:53)
[2021-07-10] MEDS ORDERED: IBUPROFEN 600 MG TABLET PO STA (14:53)
--- NOTE | 2021-07-10 14:56 | ED Physician Documentation ---
PD HPI NECK PAIN - Stated complaint Stated Complaint: NECK PX - Chief complaint Chief Complaint: Back Pain - History obtained from History obtained from: Patient - Additional information Additional information: 36-year-old woman with anxiety, polycystic ovarian syndrome Crohn's disease and a history of cervical radiculopathy presents with concern for cervical radiculopathy. A few years ago she had 6 months of neck pain which eventually resolved with traction and physical therapy. This recurred yesterday without injury. Severe mid neck pain with a cramp radiating to the right deltoid and evio-otr-nhqrish down the lateral side of the hand and right forearm. 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: Other : Chronic bladder infection HEENT: Other Psych: None Musculoskeletal: None Derm: None - Past Surgical History Past Surgical History: Yes /PAINTER SKI EDGE: Oophrectomy - Present Medications Home Medications: Ambulatory Orders Medication Instructions Recorded Confirmed Ciprofloxacin HCl [Cipro] 500 mg PO BID #14 tablet 03/18/18 FLUoxetine [PROzac] 03/18/18 Hydrocodone/Acetaminophen 1 - 2 each PO Q6H PRN #10 tablet 03/18/18 [Hydrocodon-Acetaminophen 5-325] Ondansetron Odt [Zofran] 4 mg TL Q6H PRN #10 tablet 03/18/18 hydrOXYzine HCL [Hydroxyzine HCl] 03/18/18 03/18/18 oxyCODONE [Roxicodone] 5 mg PO Q6H PRN #10 tablet 12/16/18 Cyclobenzaprine [Flexeril] 10 mg PO TID PRN #20 tablet 01/20/19 Erythromycin Base [Erythromycin 1 applic OP QID #3.5 oint...g. 07/08/19 Ophthalmic Ointment] Hydrocodone/Acetaminophen [[place] 1 each PO Q6H PRN #15 tablet 10/13/19 5-325 Tablet] Naproxen 500 mg PO BID #20 tablet 10/13/19 methocarbamoL [Robaxin] 500 mg PO Q6H PRN #20 tablet 10/13/19 Ciprofloxacin HCl [Cipro] 500 mg PO BID #20 tablet 10/16/19 Ondansetron Odt [Zofran] 4 mg TL Q6H PRN #10 tablet 10/16/19 Oxycodone HCl/Acetaminophen 1 - 2 each PO Q6H PRN #14 tablet 10/16/19 [Percocet 5-325 mg Tablet] Ibuprofen [Motrin] 800 mg PO Q8H PRN #14 tablet 07/10/21 Oxycodone HCl/Acetaminophen 1 - 2 each PO Q6H PRN #14 tablet 07/10/21 [Percocet 5-325 mg Tablet] predniSONE [Deltasone] 20 mg PO [id number] #21 tab 07/10/21 - Allergies Allergies/Adverse Reactions: Allergies Allergy/AdvReac Type Severity Reaction Status Date / Time doxycycline Allergy Rash Verified 07/10/21 13:34 - Social History Does the pt smoke?: Yes Smoking Status: Current every day smoker Does the pt drink ETOH?: Yes Does the pt have substance abuse?: No - Immunizations Immunizations are current?: Yes - POLST Patient has POLST: No PD ED PE NORMAL - Vitals Vital signs reviewed: Yes - General General: Alert and oriented X 3, No acute distress - HEENT HEENT: PERRL, EOMI - Neck Neck: Supple, no meningeal sign, Other (Tender upper and mid C-spine) - Neuro Neuro: Alert and oriented X 3, Normal speech, Other (Mildly diminished sensation in a right C6 distribution. No weakness in the hand.) - Psych Psych: Normal mood, Normal affect Results - Vitals Vitals: Vital Signs - 24 hr 07/10/21 13:35 Temperature 36.3 C L Heart Rate 87 Respiratory 20 Rate Blood Pressure 125/77 O2 Saturation 96 Oxygen O2 Source Room air PD MEDICAL DECISION MAKING - ED course ED course: 36-year-old woman with fairly classic right cervical radiculopathy treated with pain medications and anti-inflammatories including a steroid taper. Discussed need for follow-up with PCP for consideration for physical therapy and possibly MRI imaging. Also return precautions. I am prescribing a short course of short-acting opioid pain medication for this patient. 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 I have discussed that the opioids are for short term therapy only, and will not be refilled from the ED. Departure - Departure Disposition: 01 Home, Self Care Clinical Impression: Cervical radiculopathy at C6 Condition: Good Record reviewed to determine appropriate education?: Yes Instructions: ED Cervical Radiculopathy Prescriptions: predniSONE [Deltasone] 20 mg PO [id number] #21 tab Ibuprofen [Motrin] 800 mg PO Q8H PRN #14 tablet PRN Reason: PAIN &/OR FEVER Oxycodone HCl/Acetaminophen [Percocet 5-325 mg Tablet] 1 - 2 each PO Q6H PRN #14 tablet PRN Reason: pain Comments: I sent her prescriptions electronically to [facility] in [place]. As discussed it seems that you have a cervical radiculopathy also known as a pinched nerve in your neck. Follow-up with your primary care physician for consideration for referral to physical therapy. Return for new or worsening symptoms. I am prescribing a short course of narcotic pain medication for you. These are potentially dangerous and addictive medications that should be used carefully. These medications may constipate you. Take an tiqc-kpq-nmiistf stool softener (docusate) twice daily with plenty of water while taking these medications. If you go 24 hours without a bowel movement, take hsjw-ukm-thvmbbo miralax, per package instructions. Do not drink or drive while taking these medications. If you received narcotic or sedating medications while in the emergency department, do not drive for 24 hours. Store this medication in a safe, secure place and out of reach of children. It is a violation of federal law to give or sell this medication to another person or to use in a manner other than prescribed. The ED will not refill narcotic prescriptions, including prescriptions lost or stolen. To dispose of unwanted medications: 1. [facility] at [address] [facility] [address] [facility] in [place] has a medication drop box. They accept prescription medications (in pill form) Wednesday through Wednesday 9:00 a.m. to 5:00 p.m. 2. [facility] accepts prescription medications (in pill form only) for disposal year round. Call for more information. 3. Contact the [facility] for the next [facility] sponsored prescription drug collection event. , [id number], or [id number]; Note that many narcotic pain relievers also contain Tylenol/acetaminophen. Please ensure that your total dose of acetaminophen from all sources does not exceed 3 g (3000 mg) per day. Discharge Date/Time: 07/10/21 15:04
== END 2021-07-10 15:04 | disposition home or self-care (01) ==
LOC: ED 13:22
DX: M54.12 Radiculopathy, cervical region (principal); F17.200 Nicotine dependence, unspecified, uncomplicated
CPT/HCPCS: 99283; 99284; A9270; J7512

== ENCOUNTER 2021-07-12 11:03 | Emergency (ER) | payer MEDICAID ==
--- OUTSIDE RECORDS SUMMARY | 2021-07-12 11:25 | EXTERNAL MEDICAL SUMMARY RPT | Continuity of Care Document ---
:1985 Author Organization [facility] Address [address] [place] [address] Phone Care Team Providers Name Role Phone Terence Unavailable Unavailable Clapper Unavailable Unavailable Miscellaneous Unavailable Unavailable Allergies No information. Encounters No information. Medications date description facility [id number] Ondansetron 4 MG Disintegrating Tablet [facility] [id number] Ondansetron 4 MG Disintegrating Tablet [facility] Problems date description facility [id number] Unspecified abdominal pain [facility] [id number] Polycystic ovarian syndrome [facility] pital [id number] Left lower quadrant pain [facility] [id number] Follicular cyst of ovary, unspecified [facility] [id number] Diarrhea, unspecified [facility] [id number] Lower abdominal pain, unspecified [facility] Procedures date description facility [id number] [facility] [id number] [id number] Results No information. Vital Signs date [...]
[2021-07-12] MEDS ORDERED: KETOROLAC 15 MG/ML VIAL IVP STA (12:34)
[2021-07-12] MEDS ORDERED: HYDROmorphone 1 MG/ML CARPUJECT IVP STA ×4 (12:34→18:16)
--- NOTE | 2021-07-12 12:40 | ED Physician Documentation ---
History of Present Illness - Stated complaint Stated Complaint: BACK PX - Chief complaint Chief Complaint: Neuro - History obtained from History obtained from: Patient - Additonal information Additional information: 36-year-old woman seen by me a few days ago for a cervical radiculopathy. She was prescribed Percocet, prednisone taper, NSAIDs. Returns because pain is worse. Still severe neck pain radiating into the right arm. No saddle anesthesia or other weakness or numbness. 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: Other : Chronic bladder infection HEENT: Other Psych: None Musculoskeletal: None Derm: None - Past Surgical History Past Surgical History: Yes /RING SEWER: Oophrectomy - Present Medications Home Medications: Ambulatory Orders Medication Instructions Recorded Confirmed Ciprofloxacin HCl [Cipro] 500 mg PO BID #14 tablet 03/18/18 FLUoxetine [PROzac] 03/18/18 Hydrocodone/Acetaminophen 1 - 2 each PO Q6H PRN #10 tablet 03/18/18 [Hydrocodon-Acetaminophen 5-325] Ondansetron Odt [Zofran] 4 mg TL Q6H PRN #10 tablet 03/18/18 hydrOXYzine HCL [Hydroxyzine HCl] 03/18/18 03/18/18 oxyCODONE [Roxicodone] 5 mg PO Q6H PRN #10 tablet 12/16/18 Cyclobenzaprine [Flexeril] 10 mg PO TID PRN #20 tablet 01/20/19 Erythromycin Base [Erythromycin 1 applic OP QID #3.5 oint...g. 07/08/19 Ophthalmic Ointment] Hydrocodone/Acetaminophen [[place] 1 each PO Q6H PRN #15 tablet 10/13/19 5-325 Tablet] Naproxen 500 mg PO BID #20 tablet 10/13/19 methocarbamoL [Robaxin] 500 mg PO Q6H PRN #20 tablet 10/13/19 Ciprofloxacin HCl [Cipro] 500 mg PO BID #20 tablet 10/16/19 Ondansetron Odt [Zofran] 4 mg TL Q6H PRN #10 tablet 10/16/19 Oxycodone HCl/Acetaminophen 1 - 2 each PO Q6H PRN #14 tablet 10/16/19 [Percocet 5-325 mg Tablet] Ibuprofen [Motrin] 800 mg PO Q8H PRN #14 tablet 07/10/21 Oxycodone HCl/Acetaminophen 1 - 2 each PO Q6H PRN #14 tablet 07/10/21 [Percocet 5-325 mg Tablet] predniSONE [Deltasone] 20 mg PO [id number] #21 tab 07/10/21 Gabapentin [Neurontin] 300 mg PO TID #30 cap 07/12/21 Morphine Ir [Ms Ir] 15 mg PO Q6H PRN #15 tablet 07/12/21 - Allergies Allergies/Adverse Reactions: Allergies Allergy/AdvReac Type Severity Reaction Status Date / Time doxycycline Allergy Rash Verified 07/10/21 13:34 - Social History Does the pt smoke?: Yes Smoking Status: Current every day smoker Does the pt drink ETOH?: Yes Does the pt have substance abuse?: No - Immunizations Immunizations are current?: Yes - POLST Patient has POLST: No PD ED PE NORMAL - Vitals Vital signs reviewed: Yes - General General: Alert and oriented X 3, Other (She appears to be in pain and is crying) - Neck Neck: Other (Difficulty with range of motion of the neck due to pain) - Neuro Neuro: Alert and oriented X 3, Normal speech, Other (Subjective partial numbness in the right arm mostly in a C6 dermatome) Eye Opening: Spontaneous Motor: Obeys Commands Verbal: Oriented GCS Score: 15 Results - Vitals Vitals: Vital Signs - 24 hr 07/12/21 07/12/21 07/12/21 11:15 13:20 15:00 Temperature 36.9 C Heart Rate 96 80 Respiratory 18 16 Rate Blood Pressure 124/69 131/77 H 169/92 H O2 Saturation 99 95 07/12/21 07/12/21 07/12/21 15:51 15:59 17:00 Temperature Heart Rate 76 79 86 Respiratory 20 20 18 Rate Blood Pressure 128/78 128/78 126/79 O2 Saturation 99 82 L 95 07/12/21 07/12/21 07/12/21 17:26 18:00 19:12 Temperature 37 C Heart Rate 86 83 74 Respiratory 18 19 14 Rate Blood Pressure 126/79 123/84 H 114/81 H O2 Saturation 96 96 99 Oxygen O2 Source Room air PD MEDICAL DECISION MAKING - ED course ED course: 36-year-old woman with difficult to control cervical radiculopathy here. Eventually got some relief after significant divided doses of multimodal anesthesia including a few doses of ketamine. Departure - Departure Disposition: Home, Self Care Clinical Impression: Cervical radiculopathy at C6 Condition: Good Record reviewed to determine appropriate education?: Yes Instructions: ED Cervical Radiculopathy Prescriptions: Morphine Ir [Ms Ir] 15 mg PO Q6H PRN #15 tablet PRN Reason: Pain Gabapentin [Neurontin] 300 mg PO TID #30 cap Comments: I sent your prescription electronically to [facility] in [place]. You can continue the medications prescribed the other day. To that I am adding gabapentin for nerve pain. Follow-up with your doctor Wednesday for further evaluation and treatment. I am prescribing a short course of narcotic pain medication for you. These are potentially dangerous and addictive medications that should be used carefully. These medications may constipate you. Take an atkm-vfw-aercavy stool softener (docusate) twice daily with plenty of water while taking these medications. If you go 24 hours without a bowel movement, take cfpr-iyh-rlbszky miralax, per package instructions. Do not drink or drive while taking these medications. If you received narcotic or sedating medications while in the emergency department, do not drive for 24 hours. Store this medication in a safe, secure place and out of reach of children. It is a violation of federal law to give or sell this medication to another person or to use in a manner other than prescribed. The ED will not refill narcotic prescriptions, including prescriptions lost or stolen. To dispose of unwanted medications: 1. [facility] at [address] [facility] in [place] has a medication drop box. They accept prescription medications (in pill form) Wednesday through Wednesday 9:00 a.m. to 5:00 p.m. 2. The [facility] Police Department accepts prescription medications (in pill form only) for disposal year round. Call for more information. 3. Contact the [facility] for the next [facility] sponsored prescription drug collection event. , [id number], or [id number]; Note that many narcotic pain relievers also contain Tylenol/acetaminophen. Please ensure that your total dose of acetaminophen from all sources does not exceed 3 g (3000 mg) per day. Discharge Date/Time: 07/12/21 19:16
[2021-07-12] MEDS ORDERED: DEXAMETHASONE 10 MG/ML VIAL IVP STA (13:34)
[2021-07-12] MEDS ORDERED: KETAMINE 500 MG/10 ML VIAL IVP STA ×2 (14:25→16:23)
[2021-07-12] MEDS ORDERED: ONDANSETRON 4 MG/2 ML VIAL IVP STA (15:03)
[2021-07-12] MEDS ORDERED: MORPHINE 2 MG/ML CARPUJECT IVP STA (15:26)
[2021-07-12 19:16] VITALS: BP 114/81
== END 2021-07-12 19:16 | disposition home or self-care (01) ==
LOC: ED 11:03
DX: M54.12 Radiculopathy, cervical region (principal); F17.200 Nicotine dependence, unspecified, uncomplicated
CPT/HCPCS: 96374; 96375; 96376; 99283; 99285; J1170

== ENCOUNTER 2021-08-11 23:27 | Outpatient (CLI) | payer MEDICAID | END 2021-08-11 23:28 | disposition critical access hospital (66) | LOC: EMS 23:27 | DX: R53.83 Other fatigue (principal); R53.1 Weakness; R68.83 Chills (without fever); R11.10 Vomiting, unspecified | CPT/HCPCS: A0425; A0427; A0999 ==

== ENCOUNTER 2021-08-11 23:48 | Emergency (ER) | payer MEDICAID ==
--- OUTSIDE RECORDS SUMMARY | 2021-08-11 23:56 | EXTERNAL MEDICAL SUMMARY RPT | Continuity of Care Document ---
:1985 Author Organization [facility] Address [address] [place] [address] Phone Care Team Providers Name Role Phone Junior Pratt Unavailable Unavailable Miscellaneous, Doctor Unavailable Unavailable Allergies No information. Encounters No information. Medications No information. Problems date description facility [id number] Neck pain; arm pain; back pain [facility] [id number] Neck Pain [facility] [id number] Back Pain [facility] [id number] Arm Pain [facility] [id number] Unspecified abdominal pain [facility] [id number] Polycystic ovarian syndrome [facility] pital [id number] Left lower quadrant pain [facility] [id number] Follicular cyst of ovary, unspecified [facility] side [id number] Diarrhea, unspecified [facility] [id number] Lower abdominal pain, unspecified [facility] Procedures date description facility [id number] General Physician [facility] Results No information. Vital Signs date measurement value source [id number] weight_standard 43.09 lb [id number] weight_metric 19.55 kg 20210516 height_standard 61 in [id number] height_metric 154.94 cm [id number] BP_systolic 116 mm[Hg] [id number] BP_diastolic 72 mm[Hg] 20210516 BMI 17.9 kg/m2
[2021-08-12] MEDS ORDERED: ONDANSETRON 4 MG/2 ML VIAL IVP STA (00:08)
[2021-08-12] MEDS ORDERED: KETOROLAC 30 MG/ML VIAL IVP STA (00:08)
[2021-08-12] MEDS ORDERED: SODIUM CHLORIDE 0.9% 1,000 ML IV STA (00:08)
[2021-08-12 00:21] LABS: BASOPHILS % (AUTO) 0.3 %; EOSINOPHILS # (AUTO) 0.1 10^3/uL (0.0-0.7); EOSINOPHILS % (AUTO) 0.9 %; HCT - HEMATOCRIT 38.4 % (37.0-47.0); HGB - HEMOGLOBIN 13.2 g/dL (12.0-16.0); LYMPHOCYTES # (AUTO) 0.8 10^3/uL (1.5-3.5); LYMPHOCYTES % (AUTO) 11.7 %; MEAN CORPUSCULAR HGB CONC 34.4 g/dL (32.0-36.0); MEAN CORPUSCULAR VOLUME 93.2 fL (81.0-99.0); MEAN PLATELET VOLUME 10.1 fL (7.9-10.8); MONOCYTES # (AUTO) 0.5 10^3/uL (0.0-1.0); MONOCYTES % (AUTO) 7.3 %; NEUTROPHILS # (AUTO) 5.2 10^3/uL (1.5-6.6); NEUTROPHILS % (AUTO) 79.5 %; PLT - PLATELET COUNT 200 10^3/uL (130-450); RED BLOOD COUNT 4.12 10^6/uL (4.20-5.40); RED CELL DISTRIBUTION WIDTH 11.6 % (12.0-15.0); WHITE BLOOD COUNT 6.5 x10^3/uL (4.8-10.8)
--- NOTE | 2021-08-12 00:31 | ED Physician Documentation ---
History of Present Illness - Stated complaint Stated Complaint: WEAK/TIRED/V - Chief complaint Chief Complaint: General - History obtained from History obtained from: Patient - Additonal information Additional information: Patient is a 36-year-old female with a history significant for Crohn's presenting for evaluation of chills starting at noon today. Patient generally feels unwell And weak with reports of nausea. She denies known fever. She has not taken any medications to lower a fever. She had one episode of emesis that was nonbloody. She denies diarrhea. She denies abdominal pain. She denies fever, cough or congestion. She denies chest pain or difficulty breathing.Nothing makes her symptoms better or worse.She has not been vaccinated for COVID. She denies sick contacts. Review of Systems Constitutional: reports: Chills Nose: denies: Congestion Throat: denies: Sore throat Cardiac: denies: Chest pain / pressure Respiratory: denies: Dyspnea, Cough GI: reports: Nausea, Vomiting. denies: Abdominal Pain, Diarrhea : denies: Dysuria Skin: denies: Rash Musculoskeletal: denies: Back pain Neurologic: reports: Generalized weakness. 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: Endometriosis, Other : Chronic bladder infection HEENT: Other Psych: Depression, Anxiety, Post traumatic stress disorder Musculoskeletal: Other Derm: None Other Past Medical History: Spinal Stenosis - Past Surgical History Past Surgical History: Yes /ICE CREAM MAKER: Oophrectomy, Other - Present Medications Home Medications: Ambulatory Orders Medication Instructions Recorded Confirmed FLUoxetine [PROzac] 20 mg PO DAILY 03/18/18 08/12/21 Oxycodone HCl/Acetaminophen 1 - 2 each PO Q6H PRN #14 tablet 07/10/21 08/12/21 [Percocet 5-325 mg Tablet] Gabapentin [Neurontin] 300 mg PO TID #30 cap 07/12/21 08/12/21 Ondansetron Odt [Zofran] 4 mg TL Q6H PRN #10 tablet 08/12/21 - Allergies Allergies/Adverse Reactions: Allergies Allergy/AdvReac Type Severity Reaction Status Date / Time doxycycline Allergy Rash Verified 08/11/21 23:54 - Social History Does the pt smoke?: Yes Smoking Status: Current every day smoker Does the pt drink ETOH?: Yes Does the pt have substance abuse?: No - Immunizations Immunizations are current?: Yes - POLST Patient has POLST: No PD ED PE NORMAL - General General: Alert and oriented X 3, No acute distress, Well developed/nourished - HEENT HEENT: Atraumatic, Moist mucous membranes, Pharynx benign - Neck Neck: Supple, no meningeal sign - Cardiac Cardiac: RRR, No murmur, Strong equal pulses - Respiratory Respiratory: No respiratory distress, Clear bilaterally - Abdomen Abdomen: Normal bowel sounds, Soft, Non tender - Back Back: No CVA TTP - Derm Derm: No rash - Extremities Extremities: No edema - Neuro Neuro: Alert and oriented X 3, No motor deficit, Normal speech - Psych Psych: Normal mood Results - Vitals Vitals: Vital Signs - 24 hr 08/11/21 08/11/21 08/12/21 23:54 23:57 01:05 Temperature 36.0 C L 36.4 C L Heart Rate 85 87 90 Respiratory 16 16 Rate Blood Pressure 113/77 104/82 H O2 Saturation 98 99 97 08/12/21 01:42 Temperature 36.5 C Heart Rate 84 Respiratory 18 Rate Blood Pressure 93/62 O2 Saturation 97 Oxygen O2 Source Room air - Labs Labs: Laboratory Tests 08/12/21 08/12/21 08/12/21 00:15 00:15 01:10 WBC 6.5 RBC 4.12 L Hgb 13.2 Hct 38.4 MCV 93.2 MCH 32.0 H MCHC 34.4 RDW 11.6 L Plt Count 200 MPV 10.1 Neut # (Auto) 5.2 Lymph # (Auto) 0.8 L [place] # (Auto) 0.5 Eos # (Auto) 0.1 Baso # (Auto) 0.0 Absolute Nucleated RBC 0.00 Nucleated RBC % 0.0 Sodium 140 Potassium 3.8 Chloride 106 Carbon Dioxide 23 Anion Gap 11.0 BUN 12 Creatinine 0.6 Estimated GFR (MDRD) 114 Glucose 85 Calcium 8.8 Total Bilirubin 0.9 AST 15 ALT 13 Alkaline Phosphatase 33 L Total Protein 7.1 Albumin 4.2 Globulin 2.9 Albumin/Globulin Ratio 1.4 Lipase 28 Urine HCG, Qual NEGATIVE PD MEDICAL DECISION MAKING - ED course Complexity details: reviewed results, re-evaluated patient, d/w patient ED course: Patient findings and think for evaluation of chills, generalized malaise, 1 episode of emesis. She is afebrile with reassuring vital signs. Her abdominal exam is benign. Screening labs were obtained with no significant findings. Patient does not appear septic. COVID swab was obtained. Patient may be coming down with a viral illness. She did receive IV fluids, antiemetics and Toradol with improvement in her symptoms. She was ambulatory to the restroom without assistance. Patient was counseled on continuing with supportive care as well as strict return precautions for any worsening symptoms. Departure - Departure Disposition: Home, Self Care Clinical Impression: Chills (without fever) Nausea & vomiting Qualifiers: Vomiting type: unspecified Qualified Code(s): R11.2 - Nausea with vomiting, unspecified Condition: Stable Instructions: ED Viral Syndrome, ED Nausea Vomiting Prescriptions: Ondansetron Odt [Zofran] 4 mg TL Q6H PRN #10 tablet PRN Reason: Nausea / Vomiting Comments: Tyra - You were evaluated for chills and vomiting. You did not have a fever. Your other vital signs were normal. Your labs were reassuring and without significant abnormalities. You received a medicine for body aches and nausea. You had a COVID swab and the results of that are pending. Your symptoms suggest that you may be coming down with an illness, likely due to a virus. Please make sure to get plenty of rest and stay hydrated with small amounts of fluids frequently throughout the day.You can also use Motrin or Tylenol for any aches or pains.I we will send a prescription for nausea medications to the [facility]. If you have any worsening symptoms please return to the emergency department. You have a Covid test pending. You need to self quarantine until the result is done and negative. Do not leave your house. Do not get near anybody. The results should be done in 48 to 72 hours. We will call with a positive result, the fastest way to get a negative result for confirmation though is to go to the hospital website at [email or web address], click on the my [facility] tab and sign up for the patient portal. If any friends or family get sick and would like to have a Covid test done, but do not have signs or symptoms that would necessitate being hospitalized, there are multiple local options for Covid testing. [facility] keeps an updated list of testing and vaccination options at: [email or web address]. Discharge Date/Time: 08/12/21 02:15
[2021-08-12 00:34] LABS: ALBUMIN 4.2 g/dL (3.2-5.5); ALBUMIN/GLOBULIN RATIO 1.4 (1.0-2.2); BILIRUBIN,TOTAL 0.9 mg/dL (0.2-1.0); CALCIUM 8.8 mg/dL (8.5-10.3); CREATININE 0.6 mg/dL (0.4-1.0); POTASSIUM 3.8 mmol/L (3.5-5.0); TOTAL PROTEIN 7.1 g/dL (6.7-8.2)
[2021-08-12 01:21] LABS: HCG UR QUAL NEGATIVE
[2021-08-12 01:43] VITALS: BP 93/62
== END 2021-08-12 02:15 | disposition home or self-care (01) ==
LOC: EDUNIT# → ED 23:48 → SUPCPDRO 23:48 → ED 08-12 02:15
DX: R68.83 Chills (without fever) (principal); R11.2 Nausea with vomiting, unspecified; F17.200 Nicotine dependence, unspecified, uncomplicated; Z20.822 Contact with and (suspected) exposure to COVID-19
CPT/HCPCS: 36415; 80053; 81025; 83690; 85025; 96374; 96375; 99282

== ENCOUNTER 2021-11-20 15:30 | Emergency (ER) | payer MEDICAID ==
[2021-11-20 17:15] LABS: BASOPHILS % (AUTO) 0.3 %; HCT - HEMATOCRIT 37.4 % (37.0-47.0); HGB - HEMOGLOBIN 12.9 g/dL (12.0-16.0); LYMPHOCYTES # (AUTO) 0.3 10^3/uL (1.5-3.5); MEAN CORPUSCULAR HEMOGLOBIN 32.5 pg (27.0-31.0); MEAN CORPUSCULAR HGB CONC 34.5 g/dL (32.0-36.0); MEAN CORPUSCULAR VOLUME 94.2 fL (81.0-99.0); MEAN PLATELET VOLUME 10.4 fL (7.9-10.8); MONOCYTES % (AUTO) 14.8 %; NEUTROPHILS # (AUTO) 5.2 10^3/uL (1.5-6.6); NEUTROPHILS % (AUTO) 80.6 %; PLT - PLATELET COUNT 153 10^3/uL (130-450); RED BLOOD COUNT 3.97 10^6/uL (4.20-5.40); RED CELL DISTRIBUTION WIDTH 11.9 % (12.0-15.0); WHITE BLOOD COUNT 6.4 x10^3/uL (4.8-10.8)
[2021-11-20 17:26] LABS: ALBUMIN 4.6 g/dL (3.2-5.5); ALBUMIN/GLOBULIN RATIO 1.5 (1.0-2.2); BILIRUBIN,TOTAL 0.7 mg/dL (0.2-1.0); CALCIUM 9.3 mg/dL (8.5-10.3); CREATININE 0.8 mg/dL (0.4-1.0); POTASSIUM 3.5 mmol/L (3.5-5.0); TOTAL PROTEIN 7.7 g/dL (6.7-8.2)
[2021-11-20 17:50] LABS: BILIRUBIN,URINE NEGATIVE (NEGATIVE); GLUCOSE, URINE (UA) NEGATIVE (NEGATIVE); KETONES,URINE (UA) 15 mg/dL (NEGATIVE); LEUKOCYTE ESTERASE, URINE NEGATIVE (NEGATIVE); NITRITE,URINE NEGATIVE (NEGATIVE); OCCULT BLOOD,URINE TRACE-INTA (NEGATIVE); PROTEIN,URINE NEGATIVE (NEGATIVE); UROBILINOGEN,URINE 0.2 (NORMAL) E.U./dL (NORMAL)
[2021-11-20 18:05] LABS: CLARITY,URINE CLEAR (CLEAR)
[2021-11-20 18:06] LABS: HCG UR QUAL NEGATIVE
[2021-11-20] MEDS ORDERED: HYDROmorphone 1 MG/ML CARPUJECT IVP STA (18:11)
[2021-11-20] MEDS ORDERED: SODIUM CHLORIDE 0.9% 1,000 ML IV STA (18:11)
[2021-11-20] MEDS ORDERED: PROCHLORPERAZINE 10 MG/2 ML VIAL IVP STA (18:27)
--- NOTE | 2021-11-20 18:27 | ED Physician Documentation ---
History of Present Illness - Stated complaint Stated Complaint: ABD PAIN, SHAKY,VOMITING - Chief complaint Chief Complaint: Abd Pain - Additonal information Additional information: 36-year-old female presents emergency department for evaluation of lower pelvic pain that began this morning. She reports that the pain radiates down to her legs. She is crying, tearful in the exam room and is difficult to elicit history from. She states that on 10 November she was diagnosed with a urinary tract infection and completed a full course of Macrobid. She thought she had been improving until the symptoms began this morning. She does have a history of Crohn's for which she manages with diet only takes no prescribed medications. She reports constipation nausea and vomiting. She does have a history of PCOS and did require a right oophorectomy secondary to large mass and burden of the ovary. Review of Systems Constitutional: reports: Fever. 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: Endometriosis, Other : Chronic bladder infection HEENT: Other Psych: Depression, Anxiety, Post traumatic stress disorder Musculoskeletal: Other Derm: None - Past Surgical History Past Surgical History: Yes /CASING FINISHER AND STUFFER: Oophrectomy, Other - Present Medications Home Medications: Ambulatory Orders Medication Instructions Recorded Confirmed FLUoxetine [PROzac] 20 mg PO DAILY 03/18/18 08/12/21 Oxycodone HCl/Acetaminophen 1 - 2 each PO Q6H PRN #14 tablet 07/10/21 08/12/21 [Percocet 5-325 mg Tablet] Gabapentin [Neurontin] 300 mg PO TID #30 cap 07/12/21 08/12/21 Ondansetron Odt [Zofran] 4 mg TL Q6H PRN #10 tablet 08/12/21 - Allergies Allergies/Adverse Reactions: Allergies Allergy/AdvReac Type Severity Reaction Status Date / Time doxycycline Allergy Rash Verified 11/20/21 15:52 - Social History Does the pt smoke?: Yes Smoking Status: Current every day smoker Does the pt drink ETOH?: Yes Does the pt have substance abuse?: No - Immunizations Immunizations are current?: Yes - POLST Patient has POLST: No PD ED PE NORMAL - General General: Alert and oriented X 3. No: No acute distress (Crying tearful and in pain) - Neck Neck: Supple, no meningeal sign, No adenopathy - Cardiac Cardiac: RRR, No murmur - Respiratory Respiratory: No respiratory distress, Clear bilaterally - Abdomen Abdomen: Normal bowel sounds, Soft. No: Non tender (Tenderness lower suprapubic and left lower quadrant.) - Derm Derm: Normal color, Warm and dry, No rash - Extremities Extremities: No deformity - Neuro Neuro: Alert and oriented X 3, plastic cutter 2-12 intact Eye Opening: Spontaneous Motor: Obeys Commands Verbal: Oriented GCS Score: 15 Results - Vitals Vitals: Vital Signs - 24 hr 11/20/21 15:47 Temperature 37.0 C Heart Rate 100 Respiratory 16 Rate Blood Pressure 119/59 L O2 Saturation 97 Oxygen O2 Source Room air - Labs Labs: Laboratory Tests 11/20/21 11/20/21 11/20/21 17:06 17:06 17:31 WBC 6.4 RBC 3.97 L Hgb 12.9 Hct 37.4 MCV 94.2 MCH 32.5 H MCHC 34.5 RDW 11.9 L Plt Count 153 MPV 10.4 Neut # (Auto) 5.2 Lymph # (Auto) 0.3 L [place] # (Auto) 1.0 Eos # (Auto) 0.0 Baso # (Auto) 0.0 Absolute Nucleated RBC 0.00 Nucleated RBC % 0.0 Sodium 134 L Potassium 3.5 Chloride 100 L Carbon Dioxide 25 Anion Gap 9.0 BUN 13 Creatinine 0.8 Estimated GFR (MDRD) 82 L Glucose 103 H Calcium 9.3 Total Bilirubin 0.7 AST 21 ALT 16 Alkaline Phosphatase 40 L Total Protein 7.7 Albumin 4.6 Globulin 3.1 Albumin/Globulin Ratio 1.5 Lipase 25 Urine Color YELLOW Urine Clarity CLEAR Urine pH 6.0 Ur Specific [place] 1.020 Urine Protein NEGATIVE Urine Glucose (UA) NEGATIVE Urine Ketones 15 H Urine Occult Blood TRACE-INTA Urine Nitrite NEGATIVE Urine Bilirubin NEGATIVE Urine Urobilinogen 0.2 (NORMAL) Ur Leukocyte Esterase NEGATIVE Ur Microscopic Review NOT INDICATED Urine Culture Comments NOT INDICATED Urine HCG, Qual NEGATIVE - Rads (name of study) CT abd Radiology: Final report received (Small 1 mm left upper pole renal calculus. No additional urinary tract calculus identified. No findings of obstructive uropathy.) PD MEDICAL DECISION MAKING - ED course Complexity details: reviewed results, re-evaluated patient, considered differential, d/w patient ED course: 36-year-old female presents emergency department for evaluation of lower pelvic pain and pain radiating to her hips and knees. Symptoms began today. She reports that about 10 days ago she was diagnosed with a UTI and completed a full course of Macrobid. On initial presentation she was crying and rocking back and forth in the bed due to pain. She was administered a dose of Dilaudid as well as Compazine with full resolution of her symptoms. Her screening labs showed no significant leukocytosis. No electrolyte derangement. No further findings of infection. On exam she had some mild suprapubic tenderness. Given the history of recent urinary tract infection and patient's presenting symptoms a CT scan was completed. There were no findings of pyelonephritis obstructive uropathy. There is an incidental finding made of a small left renal stone. 9 on reexam the patient is pain-free. She does request to be discharged home. Etiology of her symptoms is not clear however emergent and worrisome return precautions was discussed Departure - Departure Disposition: 01 Home, Self Care Clinical Impression: Lower abdominal pain, Calculus of left kidney Condition: Stable Record reviewed to determine appropriate education?: Yes Instructions: ED Abdominal Pain Cause Unkn Fem Ch Comments: Tyra cohen are seen today in the emergency department for lower abdominal pain. You reported that the pain radiated to your hips and knees. Your screening labs today were essentially normal. Your urine showed no signs of infection. We did give you some IV fluids as well as IV pain medicine and nausea medicine and your symptoms seem to be much better. The CT scan that we did did not show any worrisome surgical findings. There is an incidental finding made of a tiny small kidney stone in the left kidney. This is not the cause of your pain as they are not typically painful unless they move out of the kidney. Though the cause your pain is not clear I feel that you will likely do well at home with ibuprofen, Tylenol and fluids as well as plenty of rest. Return to the ER if you develop fevers, have uncontrolled vomiting or a return of severe about abdominal pain
--- NOTE | 2021-11-20 19:03 | CT Report ---
PROCEDURE: Abdomen/Pelvis WO INDICATIONS: Flank pain dysuria. Recently diagnosed with UTI. TECHNIQUE: Noncontrast 5 mm thick sections acquired from the diaphragms to the symphysis. 5 mm coronal and sagi ttal reformats were then performed. For radiation dose reduction, the following was used: automated exposure control, adjustment of mA and/or kV according to patient size. COMPARISON: None. FINDINGS: Image quality: Excellent. ABDOMEN: Lung bases: Lung bases are clear. Solid organs: Liver and spleen are normal in size. Gallbladder unremarkable. Pancreas is normal in contours. No adrenal nodules. Approximately 1 mm left upper pole calculus. No additional urinary tr act calculus.oneum and bowel: Unenhanced bowel loops demonstrate normal wall thickness and caliber. No free fluid or air. Nodes and vessels: No retroperitoneal or mesenteric adenopathy by size criteria. Aorta and inferior vena cava are normal in caliber. Miscellaneous: No ventral hernias. PELVIS: Genitourinary: Bladder wall thickness is normal. Miscellaneous: No inguinal hernias or adenopathy. Bones: No suspicious bony lesions. No vertebral body compression fractures. IMPRESSION: Small 1 mm left upper pole renal calculus. No additional urinary tract calculus identified. No findin gs of obstructive uropathy. Reviewed by: Herve Aguayo MD on 11/20/2021 7:02 PM PDT Approved by: Herve Aguayo MD on 11/20/2021 7:02 PM PDT Station ID: [id number]
[2021-11-20 20:11] VITALS: BP 91/52
== END 2021-11-20 20:12 | disposition home or self-care (01) ==
LOC: ED 15:30
DX: N20.0 Calculus of kidney (principal); F17.200 Nicotine dependence, unspecified, uncomplicated
CPT/HCPCS: 36415; 74176; 80053; 81003; 81025; 83690; 85025; 96374; 96375; 99283; 99284; J1170; 81001; 87086

== ENCOUNTER 2022-02-16 22:24 | Emergency (ER) | payer MEDICAID ==
[2022-02-16 22:53] LABS: BILIRUBIN,URINE NEGATIVE (NEGATIVE); GLUCOSE, URINE (UA) NEGATIVE (NEGATIVE); KETONES,URINE (UA) NEGATIVE (NEGATIVE); LEUKOCYTE ESTERASE, URINE NEGATIVE (NEGATIVE); NITRITE,URINE NEGATIVE (NEGATIVE); OCCULT BLOOD,URINE SMALL (NEGATIVE); PH,URINE 6.5 PH (5.0-7.5); PROTEIN,URINE NEGATIVE (NEGATIVE); UROBILINOGEN,URINE 0.2 (NORMAL) E.U./dL (NORMAL)
[2022-02-16 22:54] LABS: BASOPHILS # (AUTO) 0.1 10^3/uL (0.0-0.1); BASOPHILS % (AUTO) 0.7 %; EOSINOPHILS # (AUTO) 0.2 10^3/uL (0.0-0.7); EOSINOPHILS % (AUTO) 2.5 %; HCT - HEMATOCRIT 38.7 % (37.0-47.0); LYMPHOCYTES # (AUTO) 2.3 10^3/uL (1.5-3.5); LYMPHOCYTES % (AUTO) 32.1 %; MEAN CORPUSCULAR HEMOGLOBIN 31.7 pg (27.0-31.0); MEAN CORPUSCULAR HGB CONC 33.6 g/dL (32.0-36.0); MEAN CORPUSCULAR VOLUME 94.4 fL (81.0-99.0); MEAN PLATELET VOLUME 10.2 fL (7.9-10.8); MONOCYTES # (AUTO) 0.9 10^3/uL (0.0-1.0); MONOCYTES % (AUTO) 12.2 %; NEUTROPHILS # (AUTO) 3.8 10^3/uL (1.5-6.6); NEUTROPHILS % (AUTO) 52.4 %; PLT - PLATELET COUNT 203 10^3/uL (130-450); RED CELL DISTRIBUTION WIDTH 12.1 % (12.0-15.0); WHITE BLOOD COUNT 7.3 x10^3/uL (4.8-10.8)
[2022-02-16 22:56] LABS: CLARITY,URINE CLEAR (CLEAR); HCG UR QUAL POSITIVE
[2022-02-16 23:07] LABS: ALBUMIN 4.4 g/dL (3.2-5.5); ALBUMIN/GLOBULIN RATIO 1.5 (1.0-2.2); BILIRUBIN,TOTAL 0.6 mg/dL (0.2-1.0); CALCIUM 9.2 mg/dL (8.5-10.3); CREATININE 0.8 mg/dL (0.4-1.0); POTASSIUM 3.7 mmol/L (3.5-5.0); TOTAL PROTEIN 7.4 g/dL (6.7-8.2)
[2022-02-16 23:15] LABS: RBC,URINE 0-5 /HPF (0-5); SQUAMOUS EPITHELIAL CELL,UR FEW Squamous (<= Few); WBC,URINE 0-3 /HPF (0-5)
[2022-02-16 23:16] LABS: BACTERIA,URINE None Seen /HPF (None Seen)
[2022-02-16 23:56] VITALS: BP 101/47
--- NOTE | 2022-02-17 00:25 | Ultrasound Report ---
PROCEDURE: OB First Trimester w/TV INDICATIONS: +preg, vag bleed OUTSIDE/PRIOR DATING DATA: Last menstrual period (LMP): 12/29/2021. LMP-based estimated date of delivery (LON): 10/05/2022. TECHNIQUE: Real-time scanning was performed of the fetus and maternal pelvic organs, with image documentation. Endovaginal scanning was also performed to better visualize the fetus and maternal ovaries. COMPARISON: None from current . FINDINGS: Embryo: There is a small cystic structure within the endometrium with suggestion of an associated tr ophoblastic reaction. This demonstrates a mean sac diameter of 0.4 cm corresponding to a gestational age of 5 weeks 1 day. No associated yolk sac or pole identified at this stage. Measurement variability in dating: +/- 4 weeks by LMP, +/- 7 days by mean sac diameter (use before 6 weeks gestation if crown-rump length not able to be measured), +/- 5 days by crown-rump length (6-12 weeks gestation). Maternal organs: The right ovary and fallopian tube are surgically absent. Within the left adnexa, th ere is a thick-walled cystic structure measuring up to 2.0 x 1.9 x 1.5 cm with indistinct internal ec hoes. No internal vascularity on color Doppler interrogation. There is an adjacent smaller cyst with a thin wall, measuring up to 1.6 cm. No pelvic free fluid. IMPRESSION: 1. Small cystic structure within the uterus may represent an early intrauterine or a pseudo . Recommend clinical follow-up and short-term repeat ultrasound to demonstrate viability. 2. Demonstration of 2 cystic structures in the left adnexa including a thick-walled cyst with interna l echoes. The findings are nonspecific and may include a complex corpus luteal cyst. However, ectopic cannot be fully excluded. Recommend continued clinical follow-up and a short-term repeat u ltrasound for further evaluation. Reviewed by: Jcarlos Vaughan MD on 02/17/2022 12:24 AM PST Approved by: Jcarlos Vauhgan MD on 02/17/2022 12:24 AM PST Station ID: [id number]
--- NOTE | 2022-02-17 00:49 | ED Physician Documentation ---
PD HPI FEMALE - Stated complaint Stated Complaint: BLEEDING/ - Chief complaint Chief Complaint: Abd Pain - History obtained from History obtained from: Patient - History of Present Illness Timing - onset: How many hours ago (1) Timing - details: Abrupt onset Pain level max: 5 Associated symptoms: Back pain. 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 She had recent positive home test, LMP 12/28. One previous ending in miscarriage. Review of Systems GI: reports: Reviewed and negative : reports: LMP (12/28), Vaginal bleeding, Now EGA. 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: Yes Smoking Status: Current every day smoker Does the pt drink ETOH?: Yes Does the pt have substance abuse?: No - Immunizations Immunizations are current?: Yes - POLST Patient has POLST: No PD ED PE NORMAL - Vitals Vital signs reviewed: Yes - General General: Alert and oriented X 3, No acute distress, Well developed/nourished - Cardiac Cardiac: RRR, No murmur - Respiratory Respiratory: No respiratory distress, Clear bilaterally - Abdomen Abdomen: Soft, Non tender - Back Back: No CVA TTP Results - Vitals Vitals: Oxygen O2 Source Room air - Labs Labs: Laboratory Tests 02/16/22 02/16/22 02/16/22 22:42 22:49 22:49 WBC 7.3 RBC 4.10 L Hgb 13.0 Hct 38.7 MCV 94.4 MCH 31.7 H MCHC 33.6 RDW 12.1 Plt Count 203 MPV 10.2 Neut # (Auto) 3.8 Lymph # (Auto) 2.3 [place] # (Auto) 0.9 Eos # (Auto) 0.2 Baso # (Auto) 0.1 Absolute Nucleated RBC 0.00 Nucleated RBC % 0.0 Sodium 137 Potassium 3.7 Chloride 101 Carbon Dioxide 27 Anion Gap 9.0 BUN 15 Creatinine 0.8 Estimated GFR (MDRD) 82 L Glucose 93 Calcium 9.2 Total Bilirubin 0.6 AST 19 ALT 12 Alkaline Phosphatase 41 L Total Protein 7.4 Albumin 4.4 Globulin 3.0 Albumin/Globulin Ratio 1.5 Lipase 42 HCG, Quant Urine Color YELLOW Urine Clarity CLEAR Urine pH 6.5 Ur Specific [place] <=1.005 Urine Protein NEGATIVE Urine Glucose (UA) NEGATIVE Urine Ketones NEGATIVE Urine Occult Blood SMALL H Urine Nitrite NEGATIVE Urine Bilirubin NEGATIVE Urine Urobilinogen 0.2 (NORMAL) Ur Leukocyte Esterase NEGATIVE Urine RBC 0-5 Urine WBC 0-3 Ur Squamous Epith Cells FEW Squamous Urine Bacteria None Seen Ur Microscopic Review INDICATED Urine Culture Comments NOT INDICATED Urine HCG, Qual POSITIVE 02/16/22 22:49 WBC RBC Hgb Hct MCV MCH MCHC RDW Plt Count MPV Neut # (Auto) Lymph # (Auto) [place] # (Auto) Eos # (Auto) Baso # (Auto) Absolute Nucleated RBC Nucleated RBC % Sodium Potassium Chloride Carbon Dioxide Anion Gap BUN Creatinine Estimated GFR (MDRD) Glucose Calcium Total Bilirubin AST ALT Alkaline Phosphatase Total Protein Albumin Globulin Albumin/Globulin Ratio Lipase HCG, Quant 2245.00 Urine Color Urine Clarity Urine pH Ur Specific [place] Urine Protein Urine Glucose (UA) Urine Ketones Urine Occult Blood Urine Nitrite Urine Bilirubin Urine Urobilinogen Ur Leukocyte Esterase Urine RBC Urine WBC Ur Squamous Epith Cells Urine Bacteria Ur Microscopic Review Urine Culture Comments Urine HCG, Qual - Rads (name of study) first trimester US Radiology: Prelim report reviewed, See rad report PD MEDICAL DECISION MAKING - ED course Complexity details: reviewed results, re-evaluated patient, considered differential, d/w patient ED course: HCG 2245, normal CBC and ER abdominal panel. NAD during ED stay. US shows small cystic intrauterine structure, likely but not conclusive (radiologist's interpretation indicates could be pseudopregnancy); two adjacent left adnexal cystic structures also seen. Differential of the scenario would include ectopic , early with left ovarian/adnexal cysts, early miscarriage. Results reviewed with patient, advised of need to have repeat testing within the next few days to differentiate the differential diagnosis (particularly to rule out ectopic ). Return precautions reviewed. Departure - Departure Disposition: 01 Home, Self Care Clinical Impression: Threatened miscarriage Condition: Good Instructions: ED Miscarriage Poss Follow-Up: Abhishek Alexander MD [Provider Admit Priv/Credential] - Comments: Your ultrasound is showing signs of early but it is too early for a confident reading by radiology that this is the case. There are also two cystic structures in the left pelvis. One of the unlikely but concerning possible explanations for these findings would be a tubal/ectopic . The means of determining this is to be reevaluated within the next 2-3 days for repeat blood tests and ultrasound. Discharge Date/Time: 02/17/22 01:24
== END 2022-02-17 01:24 | disposition home or self-care (01) ==
LOC: ED 22:24
DX: O20.0 Threatened abortion (principal); Z3A.00 Weeks of gestation of pregnancy not specified; O99.331 Smoking (tobacco) complicating pregnancy, first trimester; F17.200 Nicotine dependence, unspecified, uncomplicated
CPT/HCPCS: 36415; 80053; 81001; 81003; 81025; 83690; 84702; 85025; 87086; 99282; 99284

== ENCOUNTER 2022-08-19 12:35 | Emergency (ER) | payer MEDICAID ==
[2022-08-19] MEDS ORDERED: KETOROLAC 30 MG/ML VIAL IVP STA (13:01)
[2022-08-19] MEDS ORDERED: diazePAM INJ 5 MG/ML SYRINGE IVP STA (13:01)
[2022-08-19] MEDS ORDERED: DEXAMETHASONE 10 MG/ML VIAL IVP STA (13:08)
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
[2022-08-19] MEDS ORDERED: MORPHINE 2 MG/ML CARPUJECT IVP STA ×2 (13:42→14:44)
[2022-08-19 15:06] VITALS: BP 126/75
== END 2022-08-19 15:17 | disposition home or self-care (01) ==
LOC: ED 12:35
DX: M62.838 Other muscle spasm (principal); M54.12 Radiculopathy, cervical region; F17.200 Nicotine dependence, unspecified, uncomplicated
CPT/HCPCS: 96374; 96375; 96376; 99283

== ENCOUNTER 2022-09-19 13:06 | Emergency (ER) | payer MEDICAID ==
[2022-09-19] MEDS ORDERED: HYDROmorphone 1 MG/ML CARPUJECT IVP STA (13:24)
[2022-09-19] MEDS ORDERED: SODIUM CHLORIDE 0.9% 1,000 ML IV STA (13:25)
--- NOTE | 2022-09-19 13:26 | ED Physician Documentation ---
PD HPI ABD PAIN - Stated complaint Stated Complaint: VOMITING - Chief complaint Chief Complaint: Abd Pain - History obtained from History obtained from: Patient - Additional information Additional information: 37-year-old woman with history of spinal stenosis, endometriosis, Crohn's disease developed left mid abdominal pain about 3 to 4 days ago. It has progressed and then radiated around to both flanks now and is associated with gradual onset global headache vomiting, rib pain and light sensitivity. No associated diarrhea. No fevers or chills. No shortness of breath. 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: Oophrectomy, Other - Present Medications Home Medications: Ambulatory Orders Medication Instructions Recorded Confirmed FLUoxetine [PROzac] 20 mg PO DAILY 03/18/18 08/19/22 HYDROcod/ACETAM 5/325 [[place] 5/325] 1 - 2 ea PO Q6H PRN #14 tablet 08/19/22 Meloxicam [Mobic] 7.5 mg PO BID PRN #20 tablet 08/19/22 methocarbamoL [Robaxin] 500 mg PO Q6H PRN #20 tablet 08/19/22 methylPREDNISolone [Medrol] 4 mg PO DAILY #1 tab 08/19/22 Dicyclomine [Bentyl] 1 - 2 tab PO QID PRN #20 cap 09/19/22 HYDROcod/ACETAM 5/325 [[place] 5/325] 1 - 2 tab PO Q6H PRN #7 tablet 09/19/22 Ondansetron Odt [Zofran] 4 mg TL Q6H PRN #10 tablet 09/19/22 - Allergies Allergies/Adverse Reactions: Allergies Allergy/AdvReac Type Severity Reaction Status Date / Time doxycycline Allergy Rash Verified 09/19/22 13:16 - Social History Does the pt smoke?: Yes Smoking Status: Current every day smoker Does the pt drink ETOH?: Yes Does the pt have substance abuse?: No - Immunizations Immunizations are current?: Yes - POLST Patient has POLST: No PD ED PE NORMAL - Vitals Vital signs reviewed: Yes - General General: Alert and oriented X 3, Other (Appears uncomfortable) - HEENT HEENT: Other (Lazy eye on the right) - Neck Neck: Supple, no meningeal sign, No bony TTP - Cardiac Cardiac: RRR, No murmur - Respiratory Respiratory: No respiratory distress, Clear bilaterally - Abdomen Abdomen: Normal bowel sounds, Other (Diffusely tender the left abdomen with no surgical signs) - Derm Derm: No rash - Extremities Extremities: No edema, No calf tenderness / cord - Neuro Neuro: Alert and oriented X 3, Normal speech Results - Vitals Vitals: Vital Signs - 24 hr 09/19/22 09/19/22 09/19/22 13:12 13:35 14:37 Temperature 36.3 C L Heart Rate 77 70 74 Respiratory 14 18 18 Rate Blood Pressure 118/65 105/71 116/73 O2 Saturation 98 99 100 09/19/22 15:33 Temperature Heart Rate 74 Respiratory 15 Rate Blood Pressure 106/66 O2 Saturation 98 Oxygen O2 Source Room air - Labs Labs: Laboratory Tests 09/19/22 09/19/22 09/19/22 13:19 13:36 13:36 WBC 8.1 RBC 4.25 Hgb 13.5 Hct 40.3 MCV 94.8 MCH 31.8 H MCHC 33.5 RDW 12.0 Plt Count 225 MPV 10.4 Neut # (Auto) 6.1 Lymph # (Auto) 1.5 [place] # (Auto) 0.5 Eos # (Auto) 0.1 Baso # (Auto) 0.0 Absolute Nucleated RBC 0.00 Nucleated RBC % 0.0 Sodium 138 Potassium 3.7 Chloride 105 Carbon Dioxide 27 Anion Gap 6.0 BUN 9 Creatinine 0.7 Estimated GFR (MDRD) 95 Glucose 90 Calcium 8.8 Total Bilirubin 0.6 AST 19 ALT 12 Alkaline Phosphatase 41 L Total Protein 7.9 Albumin 4.6 Globulin 3.3 Albumin/Globulin Ratio 1.4 Lipase 32 Urine Color YELLOW Urine Clarity CLEAR Urine pH 7.5 Ur Specific [place] 1.010 Urine Protein NEGATIVE Urine Glucose (UA) NEGATIVE Urine Ketones NEGATIVE Urine Occult Blood NEGATIVE Urine Nitrite NEGATIVE Urine Bilirubin NEGATIVE Urine Urobilinogen 0.2 (NORMAL) Ur Leukocyte Esterase NEGATIVE Ur Microscopic Review NOT INDICATED Urine Culture Comments NOT INDICATED Urine HCG, Qual NEGATIVE PD Medical Decision Making - ED course ED course: 37-year-old woman with left-sided abdominal pain associate with vomiting. Some tenderness on exam which resolved after IV Dilaudid and then she did need some antiemetic. She was feeling much better after that. CT was noncontributory. Given close return precautions. Departure - Departure Disposition: 01 Home, Self Care Clinical Impression: Abdominal pain, Vomiting Condition: Good Record reviewed to determine appropriate education?: Yes Instructions: ED Abdominal Pain Female Non-Specific Abdominal Pain Prescriptions: Dicyclomine [Bentyl] 1 - 2 tab PO QID PRN #20 cap PRN Reason: Abdominal Pain HYDROcod/ACETAM 5/325 [[place] 5/325] 1 - 2 tab PO Q6H PRN #7 tablet PRN Reason: Pain Ondansetron Odt [Zofran] 4 mg TL Q6H PRN #10 tablet PRN Reason: Nausea / Vomiting Comments: I sent prescriptions electronically to [facility] in [place]. Diagnostic testing was normal today including CBC, comprehensive metabolic panel, urine test, test, and CAT scan. Presume you have a longer lasting than normal stomach bug, return in about 36 hours if not better, anytime if worse or if new symptoms develop. Make sure to discuss this ED visit with your primary care physician, next available appointment calling on Wednesday. I am prescribing a short course of narcotic pain medication for you. These are potentially dangerous and addictive medications that should be used carefully. These medications may constipate you. Take an xmaa-hjs-oxchqan stool softener (docusate) twice daily with plenty of water while taking these medications. If you go 24 hours without a bowel movement, take [id number]-[id number] miralax, per package instructions. Do not drink or drive while taking these medications. If you received narcotic or sedating medications while in the emergency department, do not drive for 24 hours. Store this medication in a safe, secure place and out of reach of children. It is a violation of federal law to give or sell this medication to another person or to use in a manner other than prescribed. The ED will not refill narcotic prescriptions, including prescriptions lost or stolen. To dispose of unwanted medications: 1. [facility] provides a drop box for medication in pill form only (no liquids) 8:00 am to 4:30 p.m. Wednesday-Wednesday in the lobby of the [facility], [address] Empty pills into ziplock bag before disposal. Call [phone] for information. 2.[employer] is a free service available to all [facility] residents. Go to [email or web address] Note that many narcotic pain relievers also contain Tylenol/acetaminophen. Please ensure that your total dose of acetaminophen from all sources does not exceed 3 g (3000 mg) per day. Forms: Activity restrictions Discharge Date/Time: 09/19/22 15:34
[2022-09-19 13:32] LABS: BILIRUBIN,URINE NEGATIVE (NEGATIVE); GLUCOSE, URINE (UA) NEGATIVE (NEGATIVE); KETONES,URINE (UA) NEGATIVE (NEGATIVE); LEUKOCYTE ESTERASE, URINE NEGATIVE (NEGATIVE); NITRITE,URINE NEGATIVE (NEGATIVE); OCCULT BLOOD,URINE NEGATIVE (NEGATIVE); PH,URINE 7.5 PH (5.0-7.5); PROTEIN,URINE NEGATIVE (NEGATIVE); UROBILINOGEN,URINE 0.2 (NORMAL) E.U./dL (NORMAL)
[2022-09-19 13:34] LABS: CLARITY,URINE CLEAR (CLEAR); HCG UR QUAL NEGATIVE
[2022-09-19 13:44] LABS: BASOPHILS % (AUTO) 0.5 %; EOSINOPHILS # (AUTO) 0.1 10^3/uL (0.0-0.7); EOSINOPHILS % (AUTO) 1.2 %; HCT - HEMATOCRIT 40.3 % (37.0-47.0); HGB - HEMOGLOBIN 13.5 g/dL (12.0-16.0); LYMPHOCYTES # (AUTO) 1.5 10^3/uL (1.5-3.5); LYMPHOCYTES % (AUTO) 17.8 %; MEAN CORPUSCULAR HEMOGLOBIN 31.8 pg (27.0-31.0); MEAN CORPUSCULAR HGB CONC 33.5 g/dL (32.0-36.0); MEAN CORPUSCULAR VOLUME 94.8 fL (81.0-99.0); MEAN PLATELET VOLUME 10.4 fL (7.9-10.8); MONOCYTES # (AUTO) 0.5 10^3/uL (0.0-1.0); MONOCYTES % (AUTO) 5.5 %; NEUTROPHILS # (AUTO) 6.1 10^3/uL (1.5-6.6); NEUTROPHILS % (AUTO) 74.8 %; PLT - PLATELET COUNT 225 10^3/uL (130-450); RED BLOOD COUNT 4.25 10^6/uL (4.20-5.40); WHITE BLOOD COUNT 8.1 x10^3/uL (4.8-10.8)
[2022-09-19 13:58] LABS: ALBUMIN 4.6 g/dL (3.2-5.5); ALBUMIN/GLOBULIN RATIO 1.4 (1.0-2.2); BILIRUBIN,TOTAL 0.6 mg/dL (0.2-1.0); CALCIUM 8.8 mg/dL (8.5-10.3); CREATININE 0.7 mg/dL (0.4-1.0); POTASSIUM 3.7 mmol/L (3.5-5.0); TOTAL PROTEIN 7.9 g/dL (6.7-8.2)
[2022-09-19] MEDS ORDERED: METOCLOPRAMIDE 10 MG/2 ML VIAL IVP STA (14:06)
[2022-09-19] MEDS ORDERED: iohexoL-300 100 ML VIAL ONE (14:13)
[2022-09-19] MEDS ORDERED: iohexoL-300 100 ML VIAL IVP ONE (14:37)
--- NOTE | 2022-09-19 14:59 | CT Report ---
PROCEDURE: ABDOMEN/PELVIS W INDICATIONS: IV only, L abd pain CONTRAST: 85ml omni 300 TECHNIQUE: After the administration of contrast, 5 mm thick sections acquired from the diaphragms to the symphys is. 5 mm thick coronal and sagittal reformats were acquired. For radiation dose reduction, the foll owing was used: automated exposure control, adjustment of mA and/or kV according to patient size. COMPARISON: None FINDINGS: Image quality: Excellent. Lung bases and heart: Unremarkable. Liver: No solid mass. Gallbladder and biliary tree: Spleen: No splenomegaly. Pancreas: No pancreatic ductal dilation. Adrenals: No adrenal nodule. Kidneys and ureters: No hydronephrosis. No renal cystic lesion which requires follow up. No solid mas s. Bowel and peritoneum: No bowel distension. No pathologic free fluid. The appendix is not visualized, however there are no secondary findings to suggest acute appendicitis. Lymph nodes: No central or retroperitoneal adenopathy. Vessels: No infrarenal aortic aneurysm. PELVIS Reproductive organs: Unremarkable. Bladder: No abnormal wall thickening, accounting for underdistension. Pelvic lymph nodes: No pelvic adenopathy by size criteria. Bones: No aggressive osseous abnormality. Other: No significant ventral or inguinal hernia. IMPRESSION: 1. No acute abdominal or pelvic abnormality. Reviewed by: Chidi Ridley on 09/19/2022 1:58 PM ELYSSA Approved by: Chidi Ridley on 09/19/2022 1:58 PM ELYSSA Station ID: [id number]
[2022-09-19 15:36] VITALS: BP 106/66
== END 2022-09-19 15:34 | disposition home or self-care (01) ==
LOC: ED 13:06
DX: R10.9 Unspecified abdominal pain (principal); R11.10 Vomiting, unspecified; F17.200 Nicotine dependence, unspecified, uncomplicated
CPT/HCPCS: 36415; 74177; 80053; 81003; 81025; 83690; 85025; 96374; 96375; 99283; 99284; J1170; J2765; Q9967; 81001; 87086

== ENCOUNTER 2022-11-14 11:45 | Outpatient (CLI) | payer BC, MEDICAID ==
[2022-11-14 19:08] LABS: BASOPHILS % (AUTO) 0.7 %; EOSINOPHILS % (AUTO) 0.5 %; HCT - HEMATOCRIT 42.9 % (37.0-47.0); HGB - HEMOGLOBIN 14.2 g/dL (12.0-16.0); LYMPHOCYTES # (AUTO) 1.5 10^3/uL (1.5-3.5); LYMPHOCYTES % (AUTO) 26.1 %; MEAN CORPUSCULAR HEMOGLOBIN 32.5 pg (27.0-31.0); MEAN CORPUSCULAR HGB CONC 33.1 g/dL (32.0-36.0); MEAN CORPUSCULAR VOLUME 98.2 fL (81.0-99.0); MEAN PLATELET VOLUME 11.1 fL (7.9-10.8); MONOCYTES # (AUTO) 0.5 10^3/uL (0.0-1.0); MONOCYTES % (AUTO) 9.5 %; NEUTROPHILS # (AUTO) 3.6 10^3/uL (1.5-6.6); PLT - PLATELET COUNT 246 10^3/uL (130-450); RED BLOOD COUNT 4.37 10^6/uL (4.20-5.40); RED CELL DISTRIBUTION WIDTH 12.3 % (12.0-15.0); WHITE BLOOD COUNT 5.7 x10^3/uL (4.8-10.8)
[2022-11-14 19:28] LABS: ALBUMIN 4.8 g/dL (3.2-5.5); ALBUMIN/GLOBULIN RATIO 1.7 (1.0-2.2); BILIRUBIN,TOTAL 0.7 mg/dL (0.2-1.0); CALCIUM 9.6 mg/dL (8.5-10.3); CREATININE 0.7 mg/dL (0.6-1.3); POTASSIUM 3.9 mmol/L (3.5-4.5); TOTAL PROTEIN 7.6 g/dL (6.4-8.9)
== END 2022-11-14 12:00 | disposition home or self-care (01) ==
LOC: LAB.N 11:45
PROVIDERS: ATTEND Family Medicine
DX: R10.9 Unspecified abdominal pain (principal)
CPT/HCPCS: 36415; 80053; 83690; 85025; 87086

== ENCOUNTER 2022-12-01 09:29 | Outpatient (CLI) | payer BC ==
[2022-12-01] MEDS: BARIUM SULFATE 450 ML BOTTLE PO ONE (13:42)
[2022-12-01] MEDS: iohexoL-300 100 ML VIAL IVP ONE (13:42)
--- NOTE | 2022-12-02 09:40 | CT Report ---
PROCEDURE: ABDOMEN/PELVIS W INDICATIONS: ABD PAIN CONTRAST: 100ml Omni 300 IV TECHNIQUE: After the administration of IV contrast, 5 mm thick sections acquired from the diaphragms to the symp hysis. 5 mm thick coronal and sagittal reformats were acquired. For radiation dose reduction, the f ollowing was used: automated exposure control, adjustment of mA and/or kV according to patient size. COMPARISON: CT abdomen and pelvis, 09/19/2022 and 11/20/2021. FINDINGS: Image quality: Excellent. Lung bases and heart: Unremarkable. Liver: There is a vague 2.5 x 3.9 cm posterior subcapsular mass in the posterior hepatic dome. Gallbladder and biliary tree: Normal gallbladder. No biliary dilation. Spleen: No splenomegaly. Pancreas: No pancreatic ductal dilation. Adrenals: No adrenal nodule. Kidneys and ureters: No hydronephrosis. No renal cystic lesion which requires follow up. No solid mas s. Bowel and peritoneum: No bowel distension. No pathologic free fluid. Lymph nodes: No central or retroperitoneal adenopathy. Vessels: No infrarenal aortic aneurysm. PELVIS Reproductive organs: Unremarkable. Bladder: No abnormal wall thickening, accounting for underdistension. Pelvic lymph nodes: No pelvic adenopathy by size criteria. Bones: No aggressive osseous abnormality. Other: No significant ventral or inguinal hernia. IMPRESSION: 1. A vague 2.5 x 3.9 cm subcapsular mass in the posterior liver dome. In this young patient, it is mo st likely a benign mass such as a hepatic hemangioma, focal nodular hyperplasia or adenoma. Neoplasm such as a hepatoma, is, however, not excluded. Recommend ultrasound or liver protocol MRI with and wi thout contrast for further evaluation. Reviewed by: Melany Oglesby MD on 12/02/2022 9:39 AM PDT Approved by: Melany Oglesby MD on 12/02/2022 9:39 AM PDT Station ID: [id number]
== END 2022-12-01 09:30 | disposition home or self-care (01) ==
LOC: DI 09:29
PROVIDERS: ATTEND Family Medicine
DX: R10.9 Unspecified abdominal pain (principal); R16.0 Hepatomegaly, not elsewhere classified
CPT/HCPCS: 74177; A9270; Q9967

== ENCOUNTER 2022-12-08 12:13 | Outpatient (CLI) | payer BC ==
--- NOTE | 2022-12-08 17:16 | Ultrasound Report ---
PROCEDURE: Abdomen Limited INDICATIONS: ABNORMAL CT OF ABDOMEN TECHNIQUE: Real-time focused scanning was performed of the abdomen, with image documentation. COMPARISONS: CT abdomen pelvis 12/01/2022, 09/19/2022. FINDINGS: Liver: No liver mass is identified. Liver measures 10.3 cm in size. Echogenicity is within normal li mits. Gallbladder: Gallbladder is nondistended. No stones or sludge. No gallbladder wall thickening. No per icholecystic fluid. Negative sonographic Horowitz sign. Biliary ducts: Intrahepatic bile ducts are non-dilated. Extrahepatic bile duct caliber measures 3 m m. Normal is 6-7 mm or less in diameter, or 10 mm or less post-cholecystectomy. Pancreas: Not well visualized due to overlying bowel gas. Right kidney: Normal in size and echotexture. Right kidney measures 9.5 cm long. No hydronephrosis o r nephrolithiasis. No solid masses. No complex renal cystic lesions which require follow-up. Aorta: Visualized proximal aorta is normal in caliber at less than 3 cm. IVC: Intrahepatic inferior vena cava is patent. Miscellaneous: No free abdominal fluid. IMPRESSION: No liver mass is identified with ultrasound. Recommend liver MRI with IV contrast to exclude occult benign or malignant neoplasm. Reviewed by: Shan Kramer MD on 12/08/2022 5:14 PM PDT Approved by: Shan Kramer MD on 12/08/2022 5:14 PM PDT Station ID: [id number]
== END 2022-12-08 12:14 | disposition home or self-care (01) ==
LOC: DI 12:13
PROVIDERS: ATTEND Family Medicine
DX: R93.5 Abnormal findings on diagnostic imaging of other abdominal regions, including retroperitoneum (principal)

== ENCOUNTER 2022-12-30 15:41 | Outpatient (CLI) | payer BC ==
[~2022-12-30 15:41] MED LIST: GADOTERATE MEGLUMINE 5 MMOL/10 ML VIAL ONE
[2022-12-30] MEDS ORDERED: GADOTERATE MEGLUMINE 5 MMOL/10 ML VIAL IVP ONE (16:16)
--- NOTE | 2022-12-31 09:42 | MRI Report ---
PROCEDURE: ABDOMEN W/WO INDICATIONS: ABN ABD CT CONTRAST: clariscan 8ml TECHNIQUE: Coronal ultra fast SE, axial 2D spoiled GE in- and [id number]; axial breath-hold T2 fast SE. Dynam ic axial ultra fast GE during the administration of contrast; post-contrast coronal ultra fast GE or 2D spoiled GE with fat saturation from the hepatic dome to the iliac crests. Optional diffusion weig hted imaging and ADC may be performed. COMPARISON: CT abdomen pelvis 12/01/2022, 09/19/2022. Abdominal ultrasound 12/08/2022. FINDINGS: Image quality: Excellent. Lung bases and heart: Unremarkable. Liver: No solid mass. No suspicious restricted diffusion. Again seen at the right posterior dome of t he liver is an area of heterogeneous enhancement. This is seen on the arterial and portal venous phas es but is no longer appreciated on the delayed phase. There is no restricted diffusion or T2 signal a bnormality in this region. There is very subtle fat signal dropout on the opposed phase images. Tiny T2 hyperintense cyst near the gallbladder. Gallbladder and biliary tree: No radiopaque stones or wall thickening. No biliary dilation. Spleen: No splenomegaly. Pancreas: No pancreatic ductal dilation. Adrenals: No adrenal nodule. Kidneys and ureters: No hydronephrosis. No renal cystic lesion which requires follow up. No solid mas s. Bowel and peritoneum: No bowel distension. No pathologic free fluid. Lymph nodes: No central or retroperitoneal adenopathy. Vessels: No infrarenal aortic aneurysm. Bones: No aggressive osseous abnormality. Other: No significant ventral hernia. IMPRESSION: 1. No suspicious hepatic mass. 2. Similar heterogeneous enhancement at the dome of the liver in keeping with a perfusion abnormality with associated mild fatty deposition. 3. No biliary or pancreatic ductal dilatation. Reviewed by: Shan Kramer MD on 12/31/2022 9:41 AM PDT Approved by: Shan Kramer MD on 12/31/2022 9:41 AM PDT Station ID: [id number]
== END 2022-12-30 15:42 | disposition home or self-care (01) ==
LOC: DI 15:41
PROVIDERS: ATTEND Family Medicine
DX: R93.5 Abnormal findings on diagnostic imaging of other abdominal regions, including retroperitoneum (principal)
CPT/HCPCS: 74183; A9575

== ENCOUNTER 2023-01-18 15:22 | Emergency (ER) | payer BC ==
[2023-01-18 15:35] VITALS: BP 126/71; O2SAT 99
--- NOTE | 2023-01-18 16:14 | ED Physician Documentation ---
History of Present Illness - Stated complaint Stated Complaint: MOUTH/NASAL BURNING - Chief complaint Chief Complaint: Heent - History obtained from History obtained from: Patient - Additonal information Additional information: 37-year-old female presented with send right-sided facial pain and swelling. The patient states she has recurrent dental abscess due to a broken tooth in the right upper incisors. She has had several abscesses in the past but states she has not been able to get time off work to be able to get in a dentist for an extraction. She states thatCurrent symptoms started a couple days ago, seems worse today. She is afraid it is gone up into her sinuses as she also has some nasal congestion and a burning sensation in her sinuses. She has pain in the a right side of face into the maxillary sinuses bilaterally. No facial erythema, she has not had a fever or chills to her knowledge. She does not have any purulent nasal drainage but nose is congested. She has not attempted any medication for her symptoms. Review of Systems Constitutional: reports: Reviewed and negative Nose: reports: Congestion, Sinus pressure / pain Throat: reports: Dental pain / toothache. 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, Ovarian cysts, Other : Chronic bladder infection HEENT: Other Psych: Depression, Anxiety, Post traumatic stress disorder Musculoskeletal: Other Derm: None - Past Surgical History Past Surgical History: 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: Oophrectomy, Other - Present Medications Home Medications: Ambulatory Orders Medication Instructions Recorded Confirmed FLUoxetine [PROzac] 20 mg PO DAILY 03/18/18 08/19/22 HYDROcod/ACETAM 5/325 [[place] 5/325] 1 - 2 ea PO Q6H PRN #14 tablet 08/19/22 Meloxicam [Mobic] 7.5 mg PO BID PRN #20 tablet 08/19/22 methocarbamoL [Robaxin] 500 mg PO Q6H PRN #20 tablet 08/19/22 methylPREDNISolone [Medrol] 4 mg PO DAILY #1 tab 08/19/22 Dicyclomine [Bentyl] 1 - 2 tab PO QID PRN #20 cap 09/19/22 HYDROcod/ACETAM 5/325 [[place] 5/325] 1 - 2 tab PO Q6H PRN #7 tablet 09/19/22 Ondansetron Odt [Zofran] 4 mg TL Q6H PRN #10 tablet 09/19/22 Amoxicillin 500 mg PO TID #21 cap 01/18/23 Fluticasone [Flonase] 1 sprays DEZ BID PRN #16 gm 01/18/23 - Allergies Allergies/Adverse Reactions: Allergies Allergy/AdvReac Type Severity Reaction Status Date / Time doxycycline Allergy Rash Verified 01/18/23 15:26 - Social History Does the pt smoke?: Yes Smoking Status: Current every day smoker Does the pt drink ETOH?: Yes Does the pt have substance abuse?: No - Immunizations Immunizations are current?: Yes - POLST Patient has POLST: No PD ED PE NORMAL - Vitals Vital signs reviewed: Yes - General General: Alert and oriented X 3 - HEENT HEENT: Atraumatic, Moist mucous membranes, Other (Dental decay, broken tooth with decay and a right upper incisor and surroudnign teeth. no visible gum abscess. mild ttp of the right face and bilat maxillary sinuses) Results - Vitals Vitals: Vital Signs - 24 hr 01/18/23 15:26 Temperature 36.8 C Heart Rate 88 Respiratory 16 Rate Blood Pressure 126/71 O2 Saturation 99 Oxygen O2 Source Room air PD Medical Decision Making - ED course Complexity details: considered differential, d/w patient ED course: 37-year-old female presents with right upper dental pain as well as nasal congestion and sinus discomfort. The patient is well-appearing here on physical exam, she has perhaps trace right facial swelling appreciable without erythema. She has mild tenderness of both maxillary sinuses and around a right upper incisor which is broken and decayed. There is not obvious dental abscess on the gumline but she does have some tenderness into the sinuses above. At this may be a sinusitis versus dental infection or combination of both. I encouraged the patient to follow-up as soon as possible with the dentist that she needs definitive treatment of this tooth to avoid recurrent infections like she has had. She also has some decay and surrounding teeth as well Which should be monitored. I am going to treat her with amoxicillin which will cover both sinusitis and dental infection. The patient can take ibuprofen or Tylenol as needed for pain, she can use Flonase and nasal spray for her sinus congestion and I discussed return precautions if she developed a fever, increasing facial swelling, facial erythema or other new concerns. Departure - Departure Disposition: 01 Home, Self Care Clinical Impression: Dental abscess Condition: Good Instructions: ED Abscess Dental Prescriptions: Amoxicillin 500 mg PO TID #21 cap Fluticasone [Flonase] 1 sprays DEZ BID PRN #16 gm PRN Reason: Nasal Congestion Comments: Your symptoms may be due to your dental infection vs a sinus infection or both. Take amoxicillin as prescribed and you can use saline nasal spray and flonase for your sinuses. You can use ibuprofen and tylenol over the counter for pain relief. Please follow up with dentist as soon as possible. You will likely need that tooth extracted due to recurrent infections. [facility]s sent to [facility] [place] Forms: PCP List Discharge Date/Time: 01/18/23 16:20
== END 2023-01-18 16:20 | disposition home or self-care (01) ==
LOC: ED 15:22
DX: K04.7 Periapical abscess without sinus (principal); F17.200 Nicotine dependence, unspecified, uncomplicated
CPT/HCPCS: 99282; 99283

== ENCOUNTER 2023-05-03 11:52 | Emergency (ER) | payer BC ==
[2023-05-03 12:18] LABS: BILIRUBIN,URINE NEGATIVE (NEGATIVE); GLUCOSE, URINE (UA) NEGATIVE (NEGATIVE); KETONES,URINE (UA) TRACE mg/dL (NEGATIVE); LEUKOCYTE ESTERASE, URINE NEGATIVE (NEGATIVE); NITRITE,URINE NEGATIVE (NEGATIVE); OCCULT BLOOD,URINE NEGATIVE (NEGATIVE); PROTEIN,URINE TRACE mg/dL (NEGATIVE); UROBILINOGEN,URINE 0.2 (NORMAL) E.U./dL (NORMAL)
[2023-05-03 12:19] LABS: CLARITY,URINE HAZY (CLEAR); HCG UR QUAL NEGATIVE
[2023-05-03 12:24] LABS: BASOPHILS % (AUTO) 0.5 %; HCT - HEMATOCRIT 44.8 % (37.0-47.0); HGB - HEMOGLOBIN 14.7 g/dL (12.0-16.0); LYMPHOCYTES # (AUTO) 1.2 10^3/uL (1.5-3.5); LYMPHOCYTES % (AUTO) 33.6 %; MEAN CORPUSCULAR HEMOGLOBIN 31.5 pg (27.0-31.0); MEAN CORPUSCULAR HGB CONC 32.8 g/dL (32.0-36.0); MEAN CORPUSCULAR VOLUME 95.9 fL (81.0-99.0); MEAN PLATELET VOLUME 10.6 fL (7.9-10.8); MONOCYTES # (AUTO) 1.2 10^3/uL (0.0-1.0); MONOCYTES % (AUTO) 31.7 %; NEUTROPHILS # (AUTO) 1.3 10^3/uL (1.5-6.6); NEUTROPHILS % (AUTO) 34.2 %; PLT - PLATELET COUNT 192 10^3/uL (130-450); RED BLOOD COUNT 4.67 10^6/uL (4.20-5.40); RED CELL DISTRIBUTION WIDTH 12.1 % (12.0-15.0); WHITE BLOOD COUNT 3.7 x10^3/uL (4.8-10.8)
[2023-05-03 12:27] LABS: RBC,URINE 0-5 /HPF (0-5); SQUAMOUS EPITHELIAL CELL,UR MANY Squamous (<= Few); WBC,URINE 0-3 /HPF (0-5)
[2023-05-03 12:28] LABS: BACTERIA,URINE Few /HPF (None Seen)
[2023-05-03 12:39] LABS: ALBUMIN 4.8 g/dL (3.2-5.5); ALBUMIN/GLOBULIN RATIO 1.6 (1.0-2.2); BILIRUBIN,TOTAL 0.4 mg/dL (0.2-1.0); CALCIUM 9.7 mg/dL (8.5-10.3); CREATININE 0.8 mg/dL (0.6-1.3); TOTAL PROTEIN 7.8 g/dL (6.4-8.9)
--- NOTE | 2023-05-03 17:39 | ED Physician Documentation ---
History of Present Illness - Stated complaint Stated Complaint: ABD PX/BACK PX,,NAUSEA - Chief complaint Chief Complaint: Abd Pain - History obtained from History obtained from: Patient - History of Present Illness Pain level max: 8 Pain level now: 8 - Additonal information Additional information: 37-year-old female with right-sided flank pain radiating down towards the right hip. She states occasionally on the left side of her abdomen as well. History of kidney infections and this feels similar.Does not have any diarrhea or cons tipation. Does have nausea. No vomiting. No fevers. No chills. No vaginal bleeding or discharge. Denies any possibility of . No STI exposure. No history of kidney stones No falls. No trauma. 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: Endometriosis, Ovarian cysts, Other : Chronic bladder infection HEENT: Other Psych: Depression, Anxiety, Post traumatic stress disorder Musculoskeletal: Other Derm: None - Past Surgical History Past Surgical History: Yes /MEDIA COORDINATOR: Oophrectomy, Other - Present Medications Home Medications: Ambulatory Orders Medication Instructions Recorded Confirmed FLUoxetine [PROzac] 20 mg PO DAILY 03/18/18 05/03/23 Dicyclomine [Bentyl] 1 - 2 tab PO QID PRN #20 cap 09/19/22 05/03/23 Cefpodoxime Proxetil [Vantin] 100 mg PO Q12H #20 tablet 05/03/23 Norethindrone [Jencycla] 0.35 mg PO DAILY 05/03/23 05/03/23 Ondansetron Odt [Zofran] 4 mg TL Q6H PRN #10 tablet 05/03/23 Oxycodone HCl/Acetaminophen 1 - 2 each PO Q6H PRN #14 tablet 05/03/23 [Percocet 5-325 mg Tablet] MDD 6 tabs - Allergies Allergies/Adverse Reactions: Allergies Allergy/AdvReac Type Severity Reaction Status Date / Time doxycycline Allergy Rash Verified 05/03/23 11:59 - Social History Does the pt smoke?: Yes Smoking Status: Current every day smoker Does the pt drink ETOH?: Yes Does the pt have substance abuse?: No - Immunizations Immunizations are current?: Yes - POLST Patient has POLST: No PD ED PE NORMAL - Vitals Vital signs reviewed: Yes - General General: Alert and oriented X 3, No acute distress - HEENT HEENT: PERRL, Moist mucous membranes - Neck Neck: Supple, no meningeal sign - Cardiac Cardiac: RRR, Strong equal pulses - Respiratory Respiratory: No respiratory distress, Clear bilaterally - Abdomen Abdomen: Soft, Non tender, Non distended - Female Female : Pt declined - Back Back: No spinal TTP, Other (Mild right CVA tenderness) - Derm Derm: Warm and dry - Extremities Extremities: No edema - Neuro Neuro: Alert and oriented X 3 - Psych Psych: Normal mood, Normal affect Results - Vitals Vitals: Vital Signs - 24 hr 05/03/23 05/03/23 05/03/23 11:59 17:29 18:24 Temperature 36.8 C 36.7 C 36.7 C Heart Rate 90 91 83 Respiratory 18 18 16 Rate Blood Pressure 126/70 156/86 H 123/84 H O2 Saturation 100 94 99 Oxygen O2 Source Room air - Labs Labs: Laboratory Tests 05/03/23 05/03/23 05/03/23 12:10 12:18 12:18 WBC 3.7 L RBC 4.67 Hgb 14.7 Hct 44.8 MCV 95.9 MCH 31.5 H MCHC 32.8 RDW 12.1 Plt Count 192 MPV 10.6 Neut # (Auto) 1.3 L Lymph # (Auto) 1.2 L [place] # (Auto) 1.2 H Eos # (Auto) 0.0 Baso # (Auto) 0.0 Absolute Nucleated RBC 0.00 Nucleated RBC % 0.0 Sodium 136 Potassium 4.0 Chloride 99 L Carbon Dioxide 30 Anion Gap 7.0 BUN 14 Creatinine 0.8 Estimated GFR (MDRD) 81 L Glucose 82 Calcium 9.7 Total Bilirubin 0.4 AST 17 ALT 10 Alkaline Phosphatase 44 Total Protein 7.8 Albumin 4.8 Globulin 3.0 Albumin/Globulin Ratio 1.6 Lipase 12 Urine Color DARK YELLOW Urine Clarity HAZY Urine pH 6.0 Ur Specific [place] >=1.030 H Urine Protein TRACE Urine Glucose (UA) NEGATIVE Urine Ketones TRACE Urine Occult Blood NEGATIVE Urine Nitrite NEGATIVE Urine Bilirubin NEGATIVE Urine Urobilinogen 0.2 (NORMAL) Ur Leukocyte Esterase NEGATIVE Urine RBC 0-5 Urine WBC 0-3 Ur Squamous Epith Cells MANY Squamous H Urine Bacteria Few Ur Microscopic Review INDICATED Urine Culture Comments NOT INDICATED Urine HCG, Qual NEGATIVE PD Medical Decision Making - ED course Complexity details: reviewed results, re-evaluated patient, considered differential, d/w patient ED course: Patient is well-appearing, nontoxic. Afebrile. Has right-sided CVA tenderness on exam. No abdominal tenderness. White blood cell count is normal. Urinalysis does have some bacteria though could be contaminated with squamous cells. Given her history of pyelonephritis, CVA tenderness and similar symptoms, will place on antibiotics and see how she progresses over the next few days. We did discuss a CT scan, but patient is comfortable waiting to see if she improves before undertaking a CT scan. No history of ureteral stones. Pain well-controlled. Tolerating p.o. without difficulty. Patient was given Rocephin IV, morphine IV and IV fluids. Patient counseled regarding signs and symptoms for which I believe and urgent re-evaluation would be necessary. Patient with good understanding of and agreement to plan and is comfortable going home at this time This document was made in part using voice recognition software. While efforts are made to proofread this document, sound alike and grammatical errors may occur. Departure - Departure Disposition: 01 Home, Self Care Clinical Impression: Pyelonephritis Condition: Good Instructions: ED Kidney Infec Female Follow-Up: Suad Almanza PA-C [Primary Care Provider] - Within 1 week Prescriptions: Oxycodone HCl/Acetaminophen [Percocet 5-325 mg Tablet] 1 - 2 each PO Q6H PRN #14 tablet MDD 6 tabs PRN Reason: pain Cefpodoxime Proxetil [Vantin] 100 mg PO Q12H #20 tablet Ondansetron Odt [Zofran] 4 mg TL Q6H PRN #10 tablet PRN Reason: Nausea / Vomiting Comments: Your prescriptions were sent to [facility] in [place]. Please take all antibiotics until gone. Please return if you worsen. We are treating you for a kidney infection. If you develop worsening pain, fevers, vomiting or other new or worrisome symptoms, please return for repeat evaluation. I am prescribing a short course of narcotic pain medication for you. These are potentially dangerous and addictive medications that should be used carefully. These medications may constipate you. Take an vprt-hxq-oyxmged stool softener (docusate) twice daily with plenty of water while taking these medications. If you go 24 hours without a bowel movement, take [id number] miralax, per package instructions. Do not drink or drive while taking these medications. If you received narcotic or sedating medications while in the emergency department, do not drive for 24 hours. Store this medication in a safe, secure place and out of reach of children. It is a violation of federal law to give or sell this medication to another person or to use in a manner other than prescribed. The ED will not refill narcotic prescriptions, including prescriptions lost or stolen. To dispose of unwanted medications: 1. [facility] at [address] in [place] has a medication drop box. They accept prescription medications (in pill form) Wednesday through Wednesday 9:00 a.m. to 5:00 p.m. 2. The [facility] [employer] accepts prescription medications (in pill form only) for disposal year round. Call for more information. 3. Contact the [facility] for the next [facility] sponsored prescription drug collection event. , [phone], or [phone]; Forms: PCP List Discharge Date/Time: 05/03/23 18:56
[2023-05-03] MEDS: SODIUM CHLORIDE 0.9% 1,000 ML IV STA (17:46)
[2023-05-03] MEDS: MORPHINE 2 MG/ML CARPUJECT IVP STA (17:46)
[2023-05-03 18:28] VITALS: BP 123/84; O2SAT 99
[2023-05-03] MEDS: cefTRIAXone 1 GM VIAL IVP STA (18:45)
== END 2023-05-03 18:56 | disposition home or self-care (01) ==
LOC: ED 11:52
DX: N12 Tubulo-interstitial nephritis, not specified as acute or chronic (principal); F17.200 Nicotine dependence, unspecified, uncomplicated
CPT/HCPCS: 36415; 80053; 81001; 81003; 81025; 83690; 85025; 87086; 96374; 96375; 99283

== ENCOUNTER 2023-08-10 10:00 | Emergency (ER) | payer BC ==
[2023-08-10 10:42] VITALS: BP 118/73; O2SAT 100
--- NOTE | 2023-08-10 11:14 | ED Physician Documentation ---
History of Present Illness - Stated complaint Stated Complaint: NECK PX/STIFF - Chief complaint Chief Complaint: Back Pain - Additonal information Additional information: 38-year-old female with history of neuropathy and cervical spinal stenosis requiring steroid injections in the past presents emergency department for neck pain. Patient says this feels similar to her previous neck stiffness where she is required steroid injections last steroid injection was in 2021 with a neurosurgeon from [facility]. She says normally it affects the right side of her neck but she feels like this time it is affecting the left side her neck. She is taking Tylenol and ibuprofen at home with little to no relief as well as CBD rubbing oil. She has had no recent falls no trauma no injury to the neck no recent illnesses no nausea vomiting no fevers or chills. 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, Ovarian cysts, Other : Chronic bladder infection HEENT: Other Psych: Depression, Anxiety, Post traumatic stress disorder Musculoskeletal: Other Derm: None - Past Surgical History Past Surgical History: Yes /OBSTETRICS TEACHER: Oophrectomy, Other - Present Medications Home Medications: Ambulatory Orders Medication Instructions Recorded Confirmed FLUoxetine [PROzac] 20 mg PO DAILY 03/18/18 08/10/23 Norethindrone [Jencycla] 0.35 mg PO DAILY 05/03/23 08/10/23 tiZANidine [Zanaflex] 4 mg PO Q8H #15 tablet 08/10/23 - Allergies Allergies/Adverse Reactions: Allergies Allergy/AdvReac Type Severity Reaction Status Date / Time cyclobenzaprine Allergy Unknown Verified 08/10/23 10:40 [From Flexeril] doxycycline Allergy Rash Verified 08/10/23 10:40 - Social History Does the pt smoke?: Yes Smoking Status: Current every day smoker Does the pt drink ETOH?: Yes Does the pt have substance abuse?: No - Immunizations Immunizations are current?: Yes - POLST Patient has POLST: No PD ED PE NORMAL - Vitals Vital signs reviewed: Yes - General General: Alert and oriented X 3, No acute distress, Well developed/nourished - HEENT HEENT: Atraumatic, PERRL - Neck Neck: Supple, no meningeal sign, No bony TTP - Back Back: No CVA TTP, No spinal TTP, Other (left paraspinal tenderness ) - Derm Derm: Normal color, Warm and dry, No rash - Extremities Extremities: No edema PD ED PE EXPANDED - Back Back: Soft tissue tenderness Results - Vitals Vitals: Vital Signs - 24 hr 08/10/23 10:34 Temperature 36.5 C Heart Rate 93 Respiratory 15 Rate Blood Pressure 118/73 O2 Saturation 100 Oxygen O2 Source Room air PD Medical Decision Making - ED course ED course: 38-year-old female presents emergency department for upper neck pain. Patient says that this feels very similar to her previous cervical stenosis pain flares. She has had multiple steroid injections with the last one was done in 2021 with neurosurgeon in [place]. I considered meningitis but given that patient has had no recent illnesses no fevers or chills does not show any systemic signs or symptoms of infection I do not believe that she is experiencing meningitis. I also considered a spinal epidural abscess but given again that patient has had no recent fevers or chills no history of back surgeries or had no history of IV drug this is also very low my differential. I believe the patient is experiencing a pain flare from her cervical stenosis. She was given muscle relaxant here in the emergency department she was offered a Toradol shot but she said that she does not like needles and wanted to avoid this. Prescription was sent to her preferred pharmacy she is told to follow-up with her neurosurgeon that she received the injections from in [place] for reevaluation as well as a follow-up with her primary care provider. Given that she has had no recent trauma or injury I do not believe any imaging is warranted at this time. Patient was given ER return precautions all questions answered safe for discharge. Departure - Departure Disposition: 01 Home, Self Care Clinical Impression: Neck pain, Cervical paraspinous muscle spasm Instructions: ED Neck Pain No Trauma Prescriptions: tiZANidine [Zanaflex] 4 mg PO Q8H #15 tablet Comments: Thank you for trusting us with your care. We have given you on a muscle relaxer called tizanidine we tended to give you an intramuscular shot called ketorolac but you said that you did not like shots. I have sent a prescription of tizanidine also known as a muscle relaxer to your preferred pharmacy that I want you to take up to 3 times a day for muscle spasms and back pain. Please alternate between Icing 20 minutes at a time, heat 20 minutes at a time, 1 hour off. Do some gentle range of motion exercises to make sure that you do not get more stiff. Please follow-up with your neurosurgeon as soon as possible for possible repeat steroid injection. Please come back to the emergency department if started noticed any fevers or chills, worsening pain, nausea vomiting, or any other concerning symptoms. Wishing you a speedy recovery. Discharge Date/Time: 08/10/23 12:26
[2023-08-10] MEDS: KETOROLAC 30 MG/ML VIAL IM STA (12:17)
[2023-08-10] MEDS: NAPROXEN 250 MG TABLET PO STA (12:19)
[2023-08-10] MEDS: tiZANidine 4 MG TABLET PO PRN (12:20)
== END 2023-08-10 12:26 | disposition home or self-care (01) ==
LOC: ED 10:00
DX: M62.838 Other muscle spasm (principal); F17.200 Nicotine dependence, unspecified, uncomplicated
CPT/HCPCS: 99283; A9270